=== PATIENT | female | born 1955 | race Caucasian/White ===

== ENCOUNTER 2021-11-13 01:40 | Inpatient (IN) | payer MEDICARE, BC ==
[~2021-11-13 01:40] MED LIST: Ondansetron 4 MG/2 ML SDV IVPUSH ONE; Sodium Chloride 0.9% 1,000 ML IV ONE; Sodium Chloride 0.9% 10 ML Syringe FLUSH PRN; Sodium Chloride 0.9% 2.5 ML Syringe FLUSH PRN
--- NOTE | 2021-11-13 01:43 | EDM.PDOC ---
ED HPI GENERAL MEDICAL PROBLEM - General Stated Complaint: EMS/ ABDOMINAL PAIN Time Seen by Provider: 11/13/21 01:40 - History of Present Illness INITIAL COMMENTS - FREE TEXT/NARRATIVE: History of present illness: [] Patient reports gradual increase size of her stomach with firm discomfort. She has last BM about 24 hours ago and only 2 BMs in 1 week. Now she not passing gas or stool. She is nauseated and vomiting. She has abdominal pain to that is diffuse moderately severe nothing makes it better or worse. She has remote history of bowel obstruction. Review of systems: As per history of present illness and below otherwise all systems reviewed and negative. Past medical history: As per history of present illness and as reviewed below otherwise noncontributory. Surgical history: As per history of present illness and as reviewed below otherwise noncontributory. Social history: No reported history of drug or alcohol abuse. Family history: As per history of present illness and as reviewed below otherwise noncontributory. Physical exam: Constitutional - well developed, well-nourished and in no acute distress HEENT - normocephalic, no evidence of trauma - external nose and mouth normal - no mass in neck and no JVD - mucosae moist EYES - full EOM, PERRL, no icterus - no evidence of inflammation, injection, or drainage Respiratory - no respiratory distress, equal bilateral expansion, lungs clear to auscultation and no abnormal lung sounds Cardiovascular - Regular Rhythm with S1 and S2 appreciated and no murmur, gallop or rub. GI - abdomen distended-hyperactive bowel sounds - no guard or rebound Rectal-minimal stool in vault is brown and heme-negative Musculoskeletal no gross deformity of long bones or joints - no tenderness, swelling or edema Neurologic - Alert and oriented times four - CN II-XII grossly intact - motor sensory and coordination symmetrically normal Psychiatric - appropriate mood and affect with normal thought content Hematologic - No petechiae or purpura - mucosa appropriate color and sclera not pale - normal nail bed color and refill Integument - no rash or evidence of trauma - normal turgor Diagnostics: [] Therapeutics: [] Impression: [] Plan: [] Definitive disposition and diagnosis as appropriate pending reevaluation and review of above. abdomen Pain Score (Numeric/FACES): 6 - Related Data Allergies Allergy/AdvReac Type Severity Reaction Status Date / Time No Known Allergies Allergy Verified 11/13/21 01:51 Home Meds: Home Meds . [No Known Home Meds] 11/13/21 [History] ED ROS GENERAL - Review of Systems Review Of Systems: Comprehensive ROS is negative, except as noted in HPI. ED EXAM, GENERAL - Physical Exam Exam: See Below Free Text/Narrative:: My physical exam is in the HPI Course - Vital Signs Last Recorded V/S: Last Vital Signs Temp 36.3 C 11/13/21 01:47 Pulse 111 H 11/13/21 01:47 Resp 18 11/13/21 01:47 BP 110/63 11/13/21 01:47 Pulse Ox 97 11/13/21 01:47 - Orders/Labs/Meds Orders: Active Orders 24 hr Category Date Time Status Admission Status [Patient Status] [ADT] Stat ADT 11/13/21 02:57 Ordered NG [Gastrointestinal Tube Mgmt] [RC] ASDIRECTED Care 11/13/21 02:59 Ordered NG Tube Placement [CR] Stat Exams 11/13/21 02:59 Ordered UA W/ELEANOR RFLX IF INDICATED [URIN] Stat Lab 11/13/21 01:41 Ordered Dextrose 5%-1/2 Normal Saline with KCl 20 mEq @ 100 mL/ Med 11/13/21 03:00 Ordered Hr (1000 mL) D5 1/2 NS w/ 20 mEq/L KCl 1,000 ml IV ASDIRECTED Sodium Chloride 0.9% [Saline Flush] Med 11/13/21 01:40 Active 10 ml FLUSH ASDIRECTED PRN Sodium Chloride 0.9% [Saline Flush] Med 11/13/21 01:40 Active 2.5 ml FLUSH ASDIRECTED PRN Saline Lock Insert [OM.PC] Stat Oth 11/13/21 01:40 Ordered Medication Orders Sodium Chloride (Sodium Chloride 0.9% 10 Ml Syringe) 10 ml FLUSH ASDIRECTED PRN PRN Reason: Keep Vein Open Sodium Chloride (Sodium Chloride 0.9% 2.5 Ml Syringe) 2.5 ml FLUSH ASDIRECTED PRN PRN Reason: Keep Vein Open Labs: Laboratory Tests 11/13/21 11/13/21 Range/Units 01:50 01:50 WBC 13.50 H (4.0-11.0) K/uL RBC 4.71 (4.30-5.90) M/uL Hgb 14.7 (12.0-16.0) g/dL Hct 42.6 (36.0-46.0) % MCV 90.4 (80.0-98.0) fL MCH 31.2 (27.0-32.0) pg MCHC 34.5 (31.0-37.0) g/dL RDW Std Deviation 42.8 (28.0-62.0) fl RDW Coeff of Papo 13 (11.0-15.0) % Plt Count 472 H (150-400) K/uL MPV 10.20 (7.40-12.00) fL Neut % (Auto) 73.2 (48.0-80.0) % Lymph % (Auto) 13.3 L (16.0-40.0) % Swain % (Auto) 13.3 (0.0-15.0) % Eos % (Auto) 0.1 (0.0-7.0) % Baso % (Auto) 0.1 (0.0-1.5) % Neut # (Auto) 9.9 H (1.4-5.7) K/uL Lymph # (Auto) 1.8 (0.6-2.4) K/uL Swain # (Auto) 1.8 H (0.0-0.8) K/uL Eos # (Auto) 0.0 (0.0-0.7) K/uL Baso # (Auto) 0.0 (0.0-0.1) K/uL Nucleated RBC % 0.0 /100WBC Nucleated RBCs # 0 K/uL Sodium 134 L (136-145) mmol/L Potassium 4.5 (3.5-5.1) mmol/L Chloride 95 L (98-107) mmol/L Carbon Dioxide 28.2 (21.0-32.0) mmol/L BUN 22 H (7.0-18.0) mg/dL Creatinine 1.2 H (0.6-1.0) mg/dL Est Cr Clr Drug Dosing 39.24 mL/min Estimated GFR (MDRD) 44.9 ml/min Glucose 163 H (74-106) mg/dL Calcium 9.8 (8.5-10.1) mg/dL Total Bilirubin 0.9 (0.2-1.0) mg/dL AST 15 (15-37) IU/L ALT 17 (14-63) IU/L Alkaline Phosphatase 83 (46-116) U/L Total Protein 7.8 (6.4-8.2) g/dL Albumin 3.9 (3.4-5.0) g/dL Globulin 3.9 (2.6-4.0) g/dL Albumin/Globulin Ratio 1.0 (0.9-1.6) Lipase 163 (73-393) U/L Meds: Medications Generic Name Dose Route Start Last Admin Trade Name Freq PRN Reason Stop Dose Admin Sodium Chloride 10 ml 11/13/21 01:40 Sodium Chloride 0.9% 10 Ml Syringe FLUSH ASDIRECTED PRN Keep Vein Open Sodium Chloride 2.5 ml 11/13/21 01:40 Sodium Chloride 0.9% 2.5 Ml Syringe FLUSH ASDIRECTED PRN Keep Vein Open Discontinued Medications Generic Name Dose Route Start Last Admin Trade Name Freq PRN Reason Stop Dose Admin Sodium Chloride 1,000 mls @ 999 mls/hr 11/13/21 01:40 11/13/21 02:10 Normal Saline IV 11/13/21 02:40 999 mls/hr .Bolus ONE Administration Ondansetron HCl 4 mg 11/13/21 01:40 11/13/21 02:10 Ondansetron 4 Mg/2 Ml Sdv IVPUSH 11/13/21 01:41 4 mg ONETIME ONE Administration - Re-Assessments/Exams Free Text/Narrative Re-Assessment/Exam: 11/13/21 03:01 Patient has intermittent partial small bowel obstruction. Discussed with Dr. Esteves and admitted. Departure - Departure Time of Disposition: 03:01 Disposition: Admitted As Inpatient 66 Condition: Good Clinical Impression: SBO (small bowel obstruction) - Discharge Information Sepsis Event Note (ED) - Focused Exam Vital Signs: Vital Signs Temp Pulse Resp BP Pulse Ox 11/13/21 01:47 36.3 C 111 H 18 110/63 97 - My Orders Last 24 Hours: My Active Orders 11/13/21 01:40 Sodium Chloride 0.9% [Saline Flush] 10 ml FLUSH ASDIRECTED PRN Sodium Chloride 0.9% [Saline Flush] 2.5 ml FLUSH ASDIRECTED PRN Saline Lock Insert [OM.PC] Stat 11/13/21 01:41 UA W/ELEANOR RFLX IF INDICATED [URIN] Stat 11/13/21 02:57 Admission Status [Patient Status] [ADT] Stat 11/13/21 02:59 NG [Gastrointestinal Tube Mgmt] [RC] ASDIRECTED NG Tube Placement [CR] Stat 11/13/21 03:00 Dextrose 5%-1/2 Normal Saline with KCl 20 mEq @ 100 mL/Hr (1000 mL) D5 1/2 NS w/ 20 mEq/L KCl 1,000 ml IV ASDIRECTED - Assessment/Plan Last 24 Hours: My Active Orders 11/13/21 01:40 Sodium Chloride 0.9% [Saline Flush] 10 ml FLUSH ASDIRECTED PRN Sodium Chloride 0.9% [Saline Flush] 2.5 ml FLUSH ASDIRECTED PRN Saline Lock Insert [OM.PC] Stat 11/13/21 01:41 UA W/ELEANOR RFLX IF INDICATED [URIN] Stat 11/13/21 02:57 Admission Status [Patient Status] [ADT] Stat 11/13/21 02:59 NG [Gastrointestinal Tube Mgmt] [RC] ASDIRECTED NG Tube Placement [CR] Stat 11/13/21 03:00 Dextrose 5%-1/2 Normal Saline with KCl 20 mEq @ 100 mL/Hr (1000 mL) D5 1/2 NS w/ 20 mEq/L KCl 1,000 ml IV ASDIRECTED
[2021-11-13 02:29] LABS: CARBON DIOXIDE,CO2 28.2 mmol/L (21.0-32.0); POTASSIUM,K 4.5 mmol/L (3.5-5.1)
--- NOTE | 2021-11-13 02:33 | CR ---
Indication: Abdominal pain and distension Technique: Portable upright AP view of the chest. Upright and supine views of the abdomen. Comparison: None Findings: The lungs are clear. There is no evidence of pleural effusion or pneumothorax. The cardiomediastinal silhouette is normal. There is no free air under the diaphragm. There is air distention of the transverse colon. Several distended air-filled small bowel loops also noted in the mid abdomen. Bowel air-fluid levels are seen on upright view. The visualized osseous structures are unremarkable. Impression: 1. Multiple distended air-filled small bowel loops with air-fluid levels on upright view. Bowel obstruction is not excluded. No evidence of pneumoperitoneum. Further evaluation is recommended with CT. 2. Nonspecific air distention of the transverse colon. 3. No acute intrathoracic process. Dictated by Page Garvey MD @ 11/13/2021 2:33:12 AM (Electronically Signed)
[2021-11-13] MEDS ORDERED: D5 1/2 NS w/ 20 mEq/L KCl 1,000 ML IV SCH (03:00)
[2021-11-13] MEDS ORDERED: Lidocaine 2% Viscous Solution 15 ML Cup PO ONE (03:12)
[2021-11-13] MEDS ORDERED: cefTRIAXone 1 GM in Premix Bag 1 BAG IV ONE (03:22)
--- NOTE | 2021-11-13 05:02 | CR ---
INDICATION: Tube placement. COMPARISON: X-rays earlier the same day. TECHNIQUE: Single frontal view the abdomen. FINDINGS: There has been interval placement of enteric tube with the tip and side port below the diaphragm. Again noted are multiple distended loops of both large and small bowel, similar to prior. No evidence of free air. No pathologic calcifications. No acute osseous findings. IMPRESSION: 1. Interval placement of an enteric tube with the tip and side port below the diaphragm. 2. Gaseous distended loops of both large and small bowel, not significantly changed. Dictated by Jean-Pierre Cho MD @ 11/13/2021 5:01:22 AM Dictated by: Jean-Pierre Cho MD @ 11/13/2021 05:01:34 (Electronically Signed)
[2021-11-13] MEDS ORDERED: Ondansetron 4 MG/2 ML SDV IVPUSH PRN (07:56)
[2021-11-13] MEDS ORDERED: Albuterol/Ipratropium 3.0-0.5 MG/3 ML Neb Soln NEB PRN (07:56)
--- NOTE | 2021-11-13 07:59 | PCM.HP.2 ---
H&P History of Present Illness - General Date of Service: 11/13/21 Admit Problem/Dx: Admission Diagnosis/Problem Admission Diagnosis/Problem Small bowel obstruction - History of Present Illness Initial Comments - Free Text/Narative: 66-year-old female presented to the ER with complaints of firm abdominal distention and constipation. Patient had 1 bowel movement greater than 24 hours ago but has only had 2 bowel movements in the past 1 week. Currently not passing gas or stool. Patient endorses nausea or vomiting. Patient has abdominal pain that is diffuse. Patient has a remote history of bowel obstruction. Patient also found to have a UTI and started on ceftriaxone. In the ER, patient had an NG tube placed which was confirmed with an x-ray. abdomen Pain Score (Numeric/FACES): 6 - Related Data Allergies/Adverse Reactions: Allergies Allergy/AdvReac Type Severity Reaction Status Date / Time No Known Allergies Allergy Verified 11/13/21 07:20 Home Medications: Home Meds . 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 Denies: Fever Pulmonary: Denies: Shortness of Breath, Wheezing Cardiovascular: Denies: Chest Pain, Palpitations Gastrointestinal: Reports: Abdominal Pain, Anorexia, Constipation, Distension. Denies: Black Stool, Bloody Stool, Diarrhea, Flatus Genitourinary: Denies: Dysuria Skin: Denies: Jaundice Psychiatric: Denies: Confusion Neurological: Denies: Confusion, Dizziness, Pre-Existing Deficit Exam - Exam Exam: See Below - Vital Signs Vital Signs: Last Vital Signs Temp 96.7 F L 11/13/21 05:12 Pulse 86 11/13/21 05:12 Resp 16 11/13/21 05:12 BP 107/66 11/13/21 05:12 Pulse Ox 97 11/13/21 05:12 Weight: 264 lb 12.403 oz - Exam General: Alert, Oriented HEENT: Conjunctiva Clear, EACs Clear Neck: Supple, Trachea Midline Lungs: Clear to Auscultation Cardiovascular: Regular Rate, Regular Rhythm GI/Abdominal Exam: Distended, Guarding, Tender. No: Rebound Back Exam: Normal Inspection Extremities: Normal Inspection Peripheral Pulses: 2+: Dorsalis Pedis (L), Dorsalis Pedis (R) Skin: Warm, Dry, Intact Neurological: Cranial Nerves Intact Neuro Extensive - Mental Status: Alert, Oriented x3 - Patient Data Lab Results Last 24 hrs: Laboratory Results - last 24 hr 11/13/21 11/13/21 11/13/21 Range/Units 01:50 01:50 03:02 WBC 13.50 H (4.0-11.0) K/uL RBC 4.71 (4.30-5.90) M/uL Hgb 14.7 (12.0-16.0) g/dL Hct 42.6 (36.0-46.0) % MCV 90.4 (80.0-98.0) fL MCH 31.2 (27.0-32.0) pg MCHC 34.5 (31.0-37.0) g/dL RDW Std Deviation 42.8 (28.0-62.0) fl RDW Coeff of Papo 13 (11.0-15.0) % Plt Count 472 H (150-400) K/uL MPV 10.20 (7.40-12.00) fL Neut % (Auto) 73.2 (48.0-80.0) % Lymph % (Auto) 13.3 L (16.0-40.0) % Sawyer % (Auto) 13.3 (0.0-15.0) % Eos % (Auto) 0.1 (0.0-7.0) % Baso % (Auto) 0.1 (0.0-1.5) % Neut # (Auto) 9.9 H (1.4-5.7) K/uL Lymph # (Auto) 1.8 (0.6-2.4) K/uL Sawyer # (Auto) 1.8 H (0.0-0.8) K/uL Eos # (Auto) 0.0 (0.0-0.7) K/uL Baso # (Auto) 0.0 (0.0-0.1) K/uL Nucleated RBC % 0.0 /100WBC Nucleated RBCs # 0 K/uL Sodium 134 L (136-145) mmol/L Potassium 4.5 (3.5-5.1) mmol/L Chloride 95 L (98-107) mmol/L Carbon Dioxide 28.2 (21.0-32.0) mmol/L BUN 22 H (7.0-18.0) mg/dL Creatinine 1.2 H (0.6-1.0) mg/dL Est Cr Clr Drug Dosing 39.24 mL/min Estimated GFR (MDRD) 44.9 ml/min Glucose 163 H (74-106) mg/dL Calcium 9.8 (8.5-10.1) mg/dL Total Bilirubin 0.9 (0.2-1.0) mg/dL AST 15 (15-37) IU/L ALT 17 (14-63) IU/L Alkaline Phosphatase 83 (46-116) U/L Total Protein 7.8 (6.4-8.2) g/dL Albumin 3.9 (3.4-5.0) g/dL Globulin 3.9 (2.6-4.0) g/dL Albumin/Globulin Ratio 1.0 (0.9-1.6) Lipase 163 (73-393) U/L Urine Color Urine Appearance Urine pH (5.0-8.0) Ur Specific [place] (1.001-1.035) Urine Protein (NEGATIVE) mg/dL Urine Glucose (UA) (NEGATIVE) mg/dL Urine Ketones (NEGATIVE) mg/dL Urine Occult Blood (NEGATIVE) Urine Nitrite (NEGATIVE) Urine Bilirubin (NEGATIVE) Urine Urobilinogen (<2.0) EU/dL Ur Leukocyte Esterase (NEGATIVE) U Hyaline Cast (Auto) (0-2/LPF) Urine RBC (0-2/HPF) Urine WBC (0-5/HPF) Ur Epithelial Cells (NONE-FEW) Calcium Oxalate Crystal (NEGATIVE) Urine Bacteria (NEGATIVE) SARS-CoV-2 RNA (ANTONIO) NEGATIVE (NEGATIVE) 12/21/21 Range/Units 03:05 WBC (4.0-11.0) K/uL RBC (4.30-5.90) M/uL Hgb (12.0-16.0) g/dL Hct (36.0-46.0) % MCV (80.0-98.0) fL MCH (27.0-32.0) pg MCHC (31.0-37.0) g/dL RDW Std Deviation (28.0-62.0) fl RDW Coeff of Papo (11.0-15.0) % Plt Count (150-400) K/uL MPV (7.40-12.00) fL Neut % (Auto) (48.0-80.0) % Lymph % (Auto) (16.0-40.0) % Sawyer % (Auto) (0.0-15.0) % Eos % (Auto) (0.0-7.0) % Baso % (Auto) (0.0-1.5) % Neut # (Auto) (1.4-5.7) K/uL Lymph # (Auto) (0.6-2.4) K/uL Sawyer # (Auto) (0.0-0.8) K/uL Eos # (Auto) (0.0-0.7) K/uL Baso # (Auto) (0.0-0.1) K/uL Nucleated RBC % /100WBC Nucleated RBCs # K/uL Sodium (136-145) mmol/L Potassium (3.5-5.1) mmol/L Chloride (98-107) mmol/L Carbon Dioxide (21.0-32.0) mmol/L BUN (7.0-18.0) mg/dL Creatinine (0.6-1.0) mg/dL Est Cr Clr Drug Dosing mL/min Estimated GFR (MDRD) ml/min Glucose (74-106) mg/dL Calcium (8.5-10.1) mg/dL Total Bilirubin (0.2-1.0) mg/dL AST (15-37) IU/L ALT (14-63) IU/L Alkaline Phosphatase (46-116) U/L Total Protein (6.4-8.2) g/dL Albumin (3.4-5.0) g/dL Globulin (2.6-4.0) g/dL Albumin/Globulin Ratio (0.9-1.6) Lipase (73-393) U/L Urine Color DARK YELLOW Urine Appearance SLT CLOUDY Urine pH 6.0 (5.0-8.0) Ur Specific [place] >= 1.030 (1.001-1.035) Urine Protein 30 H (NEGATIVE) mg/dL Urine Glucose (UA) NEGATIVE (NEGATIVE) mg/dL Urine Ketones >=80 (NEGATIVE) mg/dL Urine Occult Blood TRACE-INTACT H (NEGATIVE) Urine Nitrite POSITIVE H (NEGATIVE) Urine Bilirubin MODERATE H (NEGATIVE) Urine Urobilinogen 1.0 (<2.0) EU/dL Ur Leukocyte Esterase SMALL H (NEGATIVE) U Hyaline Cast (Auto) 10-15 (0-2/LPF) Urine RBC 2-4 (0-2/HPF) Urine WBC 2-5 (0-5/HPF) Ur Epithelial Cells OCCASIONAL (NONE-FEW) Calcium Oxalate Crystal OCCASIONAL (NEGATIVE) Urine Bacteria 2+ H (NEGATIVE) SARS-CoV-2 RNA (ANTONIO) (NEGATIVE) Result Diagrams: 11/13/21 01:50 11/13/21 01:50 Sepsis Event Note - Evaluation Sepsis Screening Result: No Definite Risk - Focused Exam Vital Signs: Vital Signs Temp Pulse Resp BP BP Pulse Ox 11/13/21 05:12 96.7 F L 86 16 107/66 97 11/13/21 03:05 96.9 F 80 16 130/66 99 11/13/21 01:47 97.4 F 111 H 18 110/63 97 - Problem List (1) UTI (urinary tract infection) SNOMED Code(s): 68295369 ICD Code: N39.0 - URINARY TRACT INFECTION, SITE NOT SPECIFIED Status: Acute Current Visit: Yes (2) SBO (small bowel obstruction) SNOMED Code(s): 822088200 ICD Code: K56.609 - UNSP INTESTNL OBST, UNSP TO PARTIAL VERSUS COMPLETE OBST Status: Acute Current Visit: Yes Problem List Initiated/Reviewed/Updated: Yes Orders Last 24hrs: Active Orders 24 hr Category Date Time Status Admission Status [Patient Status] [ADT] Stat ADT 11/13/21 02:57 Active Ambulate [RC] ASDIRECTED Care 11/13/21 07:56 Ordered Antiembolic Devices [RC] PER UNIT ROUTINE Care 11/13/21 07:58 Ordered NG [Gastrointestinal Tube Mgmt] [RC] ASDIRECTED Care 11/13/21 02:59 Active Oxygen Therapy [RC] PRN Care 11/13/21 07:56 Ordered RT Aerosol Therapy [RC] ASDIRECTED Care 11/13/21 07:58 Ordered VTE/DVT Education [RC] PER UNIT ROUTINE Care 11/13/21 07:56 Ordered Vital Signs [RC] Q4H Care 11/13/21 07:56 Ordered Nothing per Oral Now Diet [DIET] Diet 11/13/21 Breakfast Ordered CBC W/O DIFF,HEMOGRAM [HEME] DAILY Lab 11/14/21 05:11 Ordered CBC W/O DIFF,HEMOGRAM [HEME] DAILY Lab 11/15/21 05:11 Ordered CBC W/O DIFF,HEMOGRAM [HEME] DAILY Lab 11/16/21 05:11 Ordered COMPREHENSIVE METABOLIC PN,CMP [CHEM] DAILY Lab 11/14/21 05:11 Ordered COMPREHENSIVE METABOLIC PN,CMP [CHEM] DAILY Lab 11/15/21 05:11 Ordered COMPREHENSIVE METABOLIC PN,CMP [CHEM] DAILY Lab 11/16/21 05:11 Ordered CULTURE URINE [MREF] Stat Lab 11/13/21 03:05 Received Albuterol/Ipratropium [DuoNeb 3.0-0.5 MG/3 ML] Med 11/13/21 07:56 Ordered 3 ml NEB Q4HRRT PRN D5 1/2 NS w/ 20 mEq/L KCl 1,000 ml Med 11/13/21 03:00 Active IV ASDIRECTED Ondansetron [Zofran] Med 11/13/21 07:56 Ordered 4 mg IVPUSH Q6H PRN Sodium Chloride 0.9% [Saline Flush] Med 11/13/21 01:40 Active 10 ml FLUSH ASDIRECTED PRN Sodium Chloride 0.9% [Saline Flush] Med 11/13/21 01:40 Active 2.5 ml FLUSH ASDIRECTED PRN Saline Lock Insert [OM.PC] Stat Oth 11/13/21 01:40 Ordered Sequential Compression Device [OM.PC] Per Unit Routine Oth 11/13/21 07:57 Ordered Medication Orders Potassium Chloride/Dextrose/Sod Cl (D5 1/2 Ns W/ 20 Meq/L Kcl) 1,000 mls @ 100 mls/hr IV ASDIRECTED [facility] Last Admin: 11/13/21 03:35 Dose: 100 mls/hr Documented by: JORGE LUIS Sodium Chloride (Sodium Chloride 0.9% 10 Ml Syringe) 10 ml FLUSH ASDIRECTED PRN PRN Reason: Keep Vein Open Sodium Chloride (Sodium Chloride 0.9% 2.5 Ml Syringe) 2.5 ml FLUSH ASDIRECTED PRN PRN Reason: Keep Vein Open Assessment/Plan Comment:: Small bowel obstruction: -Conservative management. NG tube placed for decompression. NPO. Fluids as needed. Urinary tract infection: -Ceftriaxone.
[2021-11-13] MEDS: cefTRIAXone 2 GM in Premix Bag 1 BAG IV SCH (08:40)
--- NOTE | 2021-11-13 11:38 | PCM.CONS ---
H&P History of Present Illness - General Date of Service: 11/13/21 Admit Problem/Dx: Admission Diagnosis/Problem Admission Diagnosis/Problem Small bowel obstruction Source of Information: Patient History Limitations: Reports: No Limitations - History of Present Illness Initial Comments - Free Text/Narative: Patient is a 66-year-old female who presented to the emergency room earlier this morning with a one-week history of abdominal pain with intermittent nausea and vomiting. She states she has not been passing a lot of gas, but has had a couple of small to medium size bowel movements in the last week. She denies any fever or chills. She has not noticed any blood when she has a bowel movement. She denies any unexplained weight loss. This morning when I examined her she rated her pain, without analgesics, at a "1". She has had a previous laparotomy for small bowel obstruction. She was 14 years of age at the time and does not really know what was going on. She also states she has had an appendectomy. Symptom Onset Date: 11/06/21 Location: Reports: Abdomen Quality: Reports: Pressure Improves with: Reports: Rest Worsens with: Reports: Eating Context: Reports: Sick Contact Associated Symptoms: Reports: Loss of Appetite, Nausea/Vomiting. Denies: Confusion, Chest Pain, Cough abdomen Pain Score (Numeric/FACES): 6 - Related Data Allergies/Adverse Reactions: Allergies Allergy/AdvReac Type Severity Reaction Status Date / Time No Known Allergies Allergy Verified 11/13/21 07:20 Home Medications: Home Meds . 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 GI Surgical History: Reports: Appendectomy Other GI Surgeries/Procedures: Laparotomy for small bowel obstruction as a teen Social & Family History - Family History Family Medical History: No Pertinent Family History - Tobacco Use Tobacco Use Status *Q: Former Tobacco User Years of Tobacco use: 7 Used Tobacco, but Quit: Yes Month/Year Tobacco Last Used: 1977 - Caffeine Use Caffeine Use: Reports: Coffee - Recreational Drug Use Recreational Drug Use: No H&P Review of Systems - Review of Systems: Review Of Systems: See Below General: Denies: Fever, Chills, Malaise, Weakness, Fatigue, Weight Loss HEENT: Reports: No Symptoms Pulmonary: Denies: Shortness of Breath, Wheezing, Pleuritic Chest Pain Cardiovascular: Denies: Chest Pain, Palpitations Gastrointestinal: Reports: Abdominal Pain, Anorexia, Constipation, Decreased Appetite, Distension, Nausea, Vomiting. Denies: Black Stool, Bloody Stool, Diarrhea, Hematemesis, Hematochezia, Melena Genitourinary: Denies: Dysuria, Frequency, Burning, Pain, Urgency Musculoskeletal: Reports: No Symptoms Skin: Denies: Cyanosis, Jaundice, Mottled Psychiatric: Denies: Confusion, Depression, Anxiety Neurological: Denies: Confusion, Dizziness Hematologic/Lymphatic: Denies: Anemia, Easy Bleeding, Easy Bruising Immunologic: Reports: No Symptoms Exam - Exam Exam: See Below - Vital Signs Vital Signs: Last Vital Signs Temp 96.7 F L 11/13/21 05:12 Pulse 86 11/13/21 05:12 Resp 16 11/13/21 05:12 BP 107/66 11/13/21 05:12 Pulse Ox 97 11/13/21 05:12 Weight: 264 lb 12.403 oz - Exam Quality Assessment: No: Supplemental Oxygen, Urinary Catheter, Skin Breakdown General: Alert, Oriented, Cooperative, Mild Distress HEENT: Conjunctiva Clear, EACs Clear, Pupils Equal, Pupils Reactive. No: Scleral Icterus Neck: Supple, Trachea Midline Lungs: Clear to Auscultation, Normal Respiratory Effort. No: Wheezing Cardiovascular: Regular Rate, Regular Rhythm, Normal S1, Normal S2. No: Systolic Murmur, Diastolic Murmur GI/Abdominal Exam: Normal Bowel Sounds, Soft, Non-Tender, Distended (mild). No: Guarding, Rigid, Rebound Rectal (Female) Exam: Deferred Back Exam: Normal Inspection, Full Range of Motion Extremities: Normal Inspection, Normal Range of Motion, Non-Tender, No Pedal Edema Peripheral Pulses: 4+: Posterior Tibial (L), Posterior Tibial (R), Dorsalis Pedis (L), Dorsalis Pedis (R) Skin: Warm, Dry, Intact Neurological: Cranial Nerves Intact Psychiatric: Alert, Normal Affect, Normal Mood - Patient Data Lab Results Last 24 hrs: Laboratory Results - last 24 hr 11/13/21 11/13/21 11/13/21 Range/Units 01:50 01:50 03:02 WBC 13.50 H (4.0-11.0) K/uL RBC 4.71 (4.30-5.90) M/uL Hgb 14.7 (12.0-16.0) g/dL Hct 42.6 (36.0-46.0) % MCV 90.4 (80.0-98.0) fL MCH 31.2 (27.0-32.0) pg MCHC 34.5 (31.0-37.0) g/dL RDW Std Deviation 42.8 (28.0-62.0) fl RDW Coeff of Papo 13 (11.0-15.0) % Plt Count 472 H (150-400) K/uL MPV 10.20 (7.40-12.00) fL Neut % (Auto) 73.2 (48.0-80.0) % Lymph % (Auto) 13.3 L (16.0-40.0) % [place] % (Auto) 13.3 (0.0-15.0) % Eos % (Auto) 0.1 (0.0-7.0) % Baso % (Auto) 0.1 (0.0-1.5) % Neut # (Auto) 9.9 H (1.4-5.7) K/uL Lymph # (Auto) 1.8 (0.6-2.4) K/uL [place] # (Auto) 1.8 H (0.0-0.8) K/uL Eos # (Auto) 0.0 (0.0-0.7) K/uL Baso # (Auto) 0.0 (0.0-0.1) K/uL Nucleated RBC % 0.0 /100WBC Nucleated RBCs # 0 K/uL Sodium 134 L (136-145) mmol/L Potassium 4.5 (3.5-5.1) mmol/L Chloride 95 L (98-107) mmol/L Carbon Dioxide 28.2 (21.0-32.0) mmol/L BUN 22 H (7.0-18.0) mg/dL Creatinine 1.2 H (0.6-1.0) mg/dL Est Cr Clr Drug Dosing 39.24 mL/min Estimated GFR (MDRD) 44.9 ml/min Glucose 163 H (74-106) mg/dL Calcium 9.8 (8.5-10.1) mg/dL Total Bilirubin 0.9 (0.2-1.0) mg/dL AST 15 (15-37) IU/L ALT 17 (14-63) IU/L Alkaline Phosphatase 83 (46-116) U/L Total Protein 7.8 (6.4-8.2) g/dL Albumin 3.9 (3.4-5.0) g/dL Globulin 3.9 (2.6-4.0) g/dL Albumin/Globulin Ratio 1.0 (0.9-1.6) Lipase 163 (73-393) U/L Urine Color Urine Appearance Urine pH (5.0-8.0) Ur Specific Shelby (1.001-1.035) Urine Protein (NEGATIVE) mg/dL Urine Glucose (UA) (NEGATIVE) mg/dL Urine Ketones (NEGATIVE) mg/dL Urine Occult Blood (NEGATIVE) Urine Nitrite (NEGATIVE) Urine Bilirubin (NEGATIVE) Urine Urobilinogen (<2.0) EU/dL Ur Leukocyte Esterase (NEGATIVE) U Hyaline Cast (Auto) (0-2/LPF) Urine RBC (0-2/HPF) Urine WBC (0-5/HPF) Ur Epithelial Cells (NONE-FEW) Calcium Oxalate Crystal (NEGATIVE) Urine Bacteria (NEGATIVE) SARS-CoV-2 RNA (ANTONIO) NEGATIVE (NEGATIVE) 11/13/21 Range/Units 03:05 WBC (4.0-11.0) K/uL RBC (4.30-5.90) M/uL Hgb (12.0-16.0) g/dL Hct (36.0-46.0) % MCV (80.0-98.0) fL MCH (27.0-32.0) pg MCHC (31.0-37.0) g/dL RDW Std Deviation (28.0-62.0) fl RDW Coeff of Papo (11.0-15.0) % Plt Count (150-400) K/uL MPV (7.40-12.00) fL Neut % (Auto) (48.0-80.0) % Lymph % (Auto) (16.0-40.0) % [place] % (Auto) (0.0-15.0) % Eos % (Auto) (0.0-7.0) % Baso % (Auto) (0.0-1.5) % Neut # (Auto) (1.4-5.7) K/uL Lymph # (Auto) (0.6-2.4) K/uL [place] # (Auto) (0.0-0.8) K/uL Eos # (Auto) (0.0-0.7) K/uL Baso # (Auto) (0.0-0.1) K/uL Nucleated RBC % /100WBC Nucleated RBCs # K/uL Sodium (136-145) mmol/L Potassium (3.5-5.1) mmol/L Chloride (98-107) mmol/L Carbon Dioxide (21.0-32.0) mmol/L BUN (7.0-18.0) mg/dL Creatinine (0.6-1.0) mg/dL Est Cr Clr Drug Dosing mL/min Estimated GFR (MDRD) ml/min Glucose (74-106) mg/dL Calcium (8.5-10.1) mg/dL Total Bilirubin (0.2-1.0) mg/dL AST (15-37) IU/L ALT (14-63) IU/L Alkaline Phosphatase (46-116) U/L Total Protein (6.4-8.2) g/dL Albumin (3.4-5.0) g/dL Globulin (2.6-4.0) g/dL Albumin/Globulin Ratio (0.9-1.6) Lipase (73-393) U/L Urine Color DARK YELLOW Urine Appearance SLT CLOUDY Urine pH 6.0 (5.0-8.0) Ur Specific Shelby >= 1.030 (1.001-1.035) Urine Protein 30 H (NEGATIVE) mg/dL Urine Glucose (UA) NEGATIVE (NEGATIVE) mg/dL Urine Ketones >=80 (NEGATIVE) mg/dL Urine Occult Blood TRACE-INTACT H (NEGATIVE) Urine Nitrite POSITIVE H (NEGATIVE) Urine Bilirubin MODERATE H (NEGATIVE) Urine Urobilinogen 1.0 (<2.0) EU/dL Ur Leukocyte Esterase SMALL H (NEGATIVE) U Hyaline Cast (Auto) 10-15 (0-2/LPF) Urine RBC 2-4 (0-2/HPF) Urine WBC 2-5 (0-5/HPF) Ur Epithelial Cells OCCASIONAL (NONE-FEW) Calcium Oxalate Crystal OCCASIONAL (NEGATIVE) Urine Bacteria 2+ H (NEGATIVE) SARS-CoV-2 RNA (ANTONIO) (NEGATIVE) Result Diagrams: 11/13/21 01:50 11/13/21 01:50 Imaging Impressions Last 24 hrs: Abdominal films and report have been personally reviewed. I do agree there appears to be a bowel obstruction with both large and small bowel distended. This would suggest a distal colonic problem. Sepsis Event Note - Evaluation Sepsis Screening Result: No Definite Risk - Focused Exam Vital Signs: Vital Signs Temp Pulse Resp BP BP Pulse Ox 11/13/21 05:12 96.7 F L 86 16 107/66 97 11/13/21 03:05 96.9 F 80 16 130/66 99 11/13/21 01:47 97.4 F 111 H 18 110/63 97 Consult PN Assessment/Plan (1) Large bowel obstruction SNOMED Code(s): 433501178 Code(s): K56.609 - UNSP INTESTNL OBST, UNSP TO PARTIAL VERSUS COMPLETE OBST Priority: High Current Visit: Yes (2) SBO (small bowel obstruction) SNOMED Code(s): 174613621 Code(s): K56.609 - UNSP INTESTNL OBST, UNSP TO PARTIAL VERSUS COMPLETE OBST Priority: High Current Visit: Yes Problem List Initiated/Reviewed/Updated: Yes Plan: I certainly agree with NG tube decompression and intravenous fluid resuscitation. I would consider repeating a flat and upright of her abdomen to see if there has been any progression. One might also consider CT scan of the abdomen and pelvis to look for any intra-abdominal process causing the obstruction. One might also consider a Gastrografin study to see if contrast flows all the way through the small bowel into the colon and distally. Thank you for this consultation.
[2021-11-13] MEDS ORDERED: Sodium Chloride 0.9% 1,000 ML IV SCH (16:45)
[2021-11-14 07:20] LABS: BLOOD UREA NITROGEN,BUN 20 mg/dL (7.0-18.0); CARBON DIOXIDE,CO2 26.5 mmol/L (21.0-32.0); CHLORIDE,CL 101 mmol/L (98-107); GLUCOSE RANDOM 112 mg/dL (74-106); SODIUM,NA 140 mmol/L (136-145)
[2021-11-14] MEDS: cefTRIAXone 2 GM in Premix Bag 1 BAG IV SCH (07:41)
--- NOTE | 2021-11-14 09:55 | PCM.CONSN ---
- General Info Date of Service: 11/14/21 Admission Dx/Problem (Free Text): High-grade bowel obstruction, possible large bowel. Subjective Update: Abdominal pain is unchanged from yesterday. She still states it is about a "1". She still has not passed any gas or had a bowel movement. She has only been walking in her room. Functional Status: Reports: Pain Controlled - Review of Systems General: Denies: Fever, Weakness, Fatigue, Malaise HEENT: Reports: No Symptoms Pulmonary: Denies: Shortness of Breath, Cough Cardiovascular: Denies: Chest Pain Gastrointestinal: Reports: Abdominal Pain (very mild). Denies: Diarrhea, Flatus, Nausea, Vomiting (patient does have an NG that has drained 800 mL in the last 24 hours.) Genitourinary: Denies: Dysuria, Frequency, Burning Musculoskeletal: Denies: Neck Pain, Shoulder Pain, Arm Pain Skin: Denies: Cyanosis, Jaundice, Mottled, Pallor Neurological: Denies: Confusion, Dizziness Psychiatric: Denies: Confusion, Depression, Mood Lability, Anxiety - Patient Data Vitals - Most Recent: Last Vital Signs Temp 98.3 F 11/14/21 07:00 Pulse 85 11/14/21 07:00 Resp 16 11/14/21 07:00 BP 122/61 11/14/21 07:00 Pulse Ox 97 11/14/21 07:00 Weight - Most Recent: 264 lb 12.403 oz I&O - Last 24 Hours: Intake & Output 11/13/21 11/14/21 11/14/21 19:59 03:59 11:59 Intake Total 0 Output Total 665 250 Balance -665 -250 Imaging Impressions - Last 24 Hours: Abdominal films and CT scan have not yet been obtained today. Lab Results Last 24 Hours: Laboratory Results - last 24 hr 11/14/21 11/14/21 11/14/21 Range/Units 05:10 05:30 05:30 WBC 5.55 (4.0-11.0) K/uL RBC 4.33 (4.30-5.90) M/uL Hgb 13.2 (12.0-16.0) g/dL Hct 39.7 (36.0-46.0) % MCV 91.7 (80.0-98.0) fL MCH 30.5 (27.0-32.0) pg MCHC 33.2 (31.0-37.0) g/dL RDW Std Deviation 44.6 (28.0-62.0) fl RDW Coeff of Papo 13 (11.0-15.0) % Plt Count 452 H (150-400) K/uL MPV 10.90 (7.40-12.00) fL Nucleated RBC % 0.0 /100WBC Nucleated RBCs # 0 K/uL Sodium 140 (136-145) mmol/L Potassium 4.0 (3.5-5.1) mmol/L Chloride 101 (98-107) mmol/L Carbon Dioxide 26.5 (21.0-32.0) mmol/L BUN 20 H (7.0-18.0) mg/dL Creatinine 0.7 (0.6-1.0) mg/dL Est Cr Clr Drug Dosing 79.75 mL/min Estimated GFR (MDRD) > 60.0 ml/min Glucose 112 H (74-106) mg/dL POC Glucose 107 H (70-99) mg/dL Calcium 9.0 (8.5-10.1) mg/dL Total Bilirubin 0.5 (0.2-1.0) mg/dL AST 15 (15-37) IU/L ALT 18 (14-63) IU/L Alkaline Phosphatase 69 (46-116) U/L Total Protein 6.5 (6.4-8.2) g/dL Albumin 3.4 (3.4-5.0) g/dL Globulin 3.1 (2.6-4.0) g/dL Albumin/Globulin Ratio 1.1 (0.9-1.6) Med Orders - Current: Current Medications Albuterol/Ipratropium (Albuterol/Ipratropium 3.0-0.5 Mg/3 Ml Neb Soln) 3 ml NEB Q4HRRT PRN PRN Reason: Shortness Of Breath/wheezing Ceftriaxone Sodium/Dextrose 2 (gm/ Premix) 50 mls @ 100 mls/hr IV Q24H [facility] Last Admin: 11/14/21 07:41 Dose: 100 mls/hr Documented by: Ondansetron HCl (Ondansetron 4 Mg/2 Ml Sdv) 4 mg IVPUSH Q6H PRN PRN Reason: Nausea/Vomiting Sodium Chloride (Sodium Chloride 0.9% 10 Ml Syringe) 10 ml FLUSH ASDIRECTED PRN PRN Reason: Keep Vein Open Sodium Chloride (Sodium Chloride 0.9% 2.5 Ml Syringe) 2.5 ml FLUSH ASDIRECTED PRN PRN Reason: Keep Vein Open Discontinued Medications Sodium Chloride (Normal Saline) 1,000 mls @ 999 mls/hr IV .Bolus ONE Stop: 11/13/21 02:40 Last Admin: 11/13/21 02:10 Dose: 999 mls/hr Documented by: Potassium Chloride/Dextrose/Sod Cl (D5 1/2 Ns W/ 20 Meq/L Kcl) 1,000 mls @ 100 mls/hr IV ASDIRECTED ANNY Last Admin: 11/13/21 03:35 Dose: 100 mls/hr Documented by: Ceftriaxone Sodium/Dextrose 1 (gm/ Premix) 50 mls @ 100 mls/hr IV ONETIME ONE Stop: 11/13/21 03:51 Last Admin: 11/13/21 03:35 Dose: 100 mls/hr Documented by: Sodium Chloride (Normal Saline) 1,000 mls @ 75 mls/hr IV ONETIME [facility] Stop: 11/14/21 06:04 Last Admin: 11/13/21 19:01 Dose: 75 mls/hr Documented by: Lidocaine HCl (Lidocaine 2% Viscous Solution 15 Ml Cup) 15 ml PO ONETIME ONE Stop: 11/13/21 03:13 Last Admin: 11/13/21 03:36 Dose: 15 ml Documented by: Ondansetron HCl (Ondansetron 4 Mg/2 Ml Sdv) 4 mg IVPUSH ONETIME ONE Stop: 11/13/21 01:41 Last Admin: 11/13/21 02:10 Dose: 4 mg Documented by: - Exam General: Alert, Oriented, Cooperative, Mild Distress HEENT: Pupils Equal, Pupils Reactive. No: Scleral Icterus Neck: Supple Lungs: Clear to Auscultation, Normal Respiratory Effort Cardiovascular: Regular Rate, Regular Rhythm, No Murmurs GI/Abdominal Exam: Soft, Non-Tender, Distended (mild), Abnormal Bowel Sounds (bowel sounds, slightly high-pitched today.). No: Guarding, Rigid, Rebound (Female) Exam: Deferred Back Exam: Normal Inspection, Full Range of Motion Peripheral Pulses: 4+: Posterior Tibial (L), Posterior Tibial (R), Dorsalis Pedis (L), Dorsalis Pedis (R) Skin: Warm, Dry, Intact Neurological: No New Focal Deficit Psy/Mental Status: Alert, Normal Affect, Normal Mood Sepsis Event Note - Evaluation Sepsis Screening Result: No Definite Risk - Focused Exam Vital Signs: Vital Signs Temp Pulse Resp BP BP Pulse Ox 11/14/21 07:00 98.3 F 85 16 122/61 97 11/14/21 03:00 96.2 F L 82 16 127/70 97 11/13/21 23:00 98.2 F 87 16 107/66 97 Consult PN Assessment/Plan (1) Large bowel obstruction SNOMED Code(s): 354285865 Code(s): K56.609 - UNSP INTESTNL OBST, UNSP TO PARTIAL VERSUS COMPLETE OBST Priority: High Current Visit: Yes (2) SBO (small bowel obstruction) SNOMED Code(s): 873033703 Code(s): K56.609 - UNSP INTESTNL OBST, UNSP TO PARTIAL VERSUS COMPLETE OBST Priority: High Current Visit: Yes Problem List Initiated/Reviewed/Updated: Yes Plan: Patient is symptomatically unchanged from yesterday. She does have mild abdominal distention but no focal tenderness. Bowel sounds are more active today and slightly high-pitched. Abdominal films and CT scan have not been obtained today.
[2021-11-14] MEDS ORDERED: Dextrose 5%-0.9% NaCl 1,000 ML IV SCH (11:15)
--- NOTE | 2021-11-14 12:14 | CR ---
Indication: Follow-up small bowel obstruction. Technique: Single-view of the abdomen Comparison: November 13, 2021 at 3:57 a.m. Findings: Nasogastric tube ends in the stomach. Persistent significant dilation bowel compatible with small-bowel obstruction. There is gas within the colon so this is either an early complete obstruction or incomplete obstruction. Degree of gaseous distention of the small bowel has mildly improved Impression: Persistent findings of an obstruction as outlined above Dictated by Sheng Merritt MD @ 11/14/2021 12:12:24 PM (Electronically Signed)
--- NOTE | 2021-11-14 13:45 | PCM.PN ---
<Stephen Kebede - Last Filed: 11/14/21 13:43> - General Info Date of Service: 11/14/21 Subjective Update: Patient admitted for SBO, NG tube in place, n.p.o. Abdominal distention is improved. Patient denies abdominal pain. Patient has been walking. She has had 1 bowel movement this morning. Patient denies fever, chills, nausea, vomiting. - Review of Systems General: Denies: Fever, Chills Pulmonary: Denies: Shortness of Breath, Cough Cardiovascular: Denies: Chest Pain, Palpitations Gastrointestinal: Reports: Constipation, Flatus. Denies: Abdominal Pain, Diarrhea, Nausea, Vomiting Genitourinary: Denies: Dysuria - Patient Data Vitals - Most Recent: Last Vital Signs Temp 98.3 F 11/14/21 07:00 Pulse 85 11/14/21 07:00 Resp 16 11/14/21 07:00 BP 122/61 11/14/21 07:00 Pulse Ox 97 11/14/21 07:56 Weight - Most Recent: 264 lb 12.403 oz I&O - Last 24 Hours: Intake & Output 11/13/21 11/14/21 11/14/21 22:59 06:59 14:59 Intake Total 0 Output Total 665 250 Balance -665 -250 Lab Results Last 24 Hours: Laboratory Results - last 24 hr 11/14/21 11/14/21 11/14/21 Range/Units 05:10 05:30 05:30 WBC 5.55 (4.0-11.0) K/uL RBC 4.33 (4.30-5.90) M/uL Hgb 13.2 (12.0-16.0) g/dL Hct 39.7 (36.0-46.0) % MCV 91.7 (80.0-98.0) fL MCH 30.5 (27.0-32.0) pg MCHC 33.2 (31.0-37.0) g/dL RDW Std Deviation 44.6 (28.0-62.0) fl RDW Coeff of Papo 13 (11.0-15.0) % Plt Count 452 H (150-400) K/uL MPV 10.90 (7.40-12.00) fL Nucleated RBC % 0.0 /100WBC Nucleated RBCs # 0 K/uL Sodium 140 (136-145) mmol/L Potassium 4.0 (3.5-5.1) mmol/L Chloride 101 (98-107) mmol/L Carbon Dioxide 26.5 (21.0-32.0) mmol/L BUN 20 H (7.0-18.0) mg/dL Creatinine 0.7 (0.6-1.0) mg/dL Est Cr Clr Drug Dosing 79.75 mL/min Estimated GFR (MDRD) > 60.0 ml/min Glucose 112 H (74-106) mg/dL POC Glucose 107 H (70-99) mg/dL Calcium 9.0 (8.5-10.1) mg/dL Total Bilirubin 0.5 (0.2-1.0) mg/dL AST 15 (15-37) IU/L ALT 18 (14-63) IU/L Alkaline Phosphatase 69 (46-116) U/L Total Protein 6.5 (6.4-8.2) g/dL Albumin 3.4 (3.4-5.0) g/dL Globulin 3.1 (2.6-4.0) g/dL Albumin/Globulin Ratio 1.1 (0.9-1.6) Med Orders - Current: Current Medications Albuterol/Ipratropium (Albuterol/Ipratropium 3.0-0.5 Mg/3 Ml Neb Soln) 3 ml NEB Q4HRRT PRN PRN Reason: Shortness Of Breath/wheezing Ceftriaxone Sodium/Dextrose 2 (gm/ Premix) 50 mls @ 100 mls/hr IV Q24H [facility] Last Admin: 11/14/21 07:41 Dose: 100 mls/hr Documented by: Dextrose/Sodium Chloride (Dextrose 5%-Normal Saline) 1,000 mls @ 75 mls/hr IV ASDIRECTED [facility] Stop: 11/15/21 00:34 Last Admin: 11/14/21 12:18 Dose: 75 mls/hr Documented by: Ondansetron HCl (Ondansetron 4 Mg/2 Ml Sdv) 4 mg IVPUSH Q6H PRN PRN Reason: Nausea/Vomiting Sodium Chloride (Sodium Chloride 0.9% 10 Ml Syringe) 10 ml FLUSH ASDIRECTED PRN PRN Reason: Keep Vein Open Sodium Chloride (Sodium Chloride 0.9% 2.5 Ml Syringe) 2.5 ml FLUSH ASDIRECTED PRN PRN Reason: Keep Vein Open Discontinued Medications Sodium Chloride (Normal Saline) 1,000 mls @ 999 mls/hr IV .Bolus ONE Stop: 11/13/21 02:40 Last Admin: 11/13/21 02:10 Dose: 999 mls/hr Documented by: Potassium Chloride/Dextrose/Sod Cl (D5 1/2 Ns W/ 20 Meq/L Kcl) 1,000 mls @ 100 mls/hr IV ASDIRECTED [facility] Last Admin: 11/13/21 03:35 Dose: 100 mls/hr Documented by: Ceftriaxone Sodium/Dextrose 1 (gm/ Premix) 50 mls @ 100 mls/hr IV ONETIME ONE Stop: 11/13/21 03:51 Last Admin: 11/13/21 03:35 Dose: 100 mls/hr Documented by: Sodium Chloride (Normal Saline) 1,000 mls @ 75 mls/hr IV ONETIME [facility] Stop: 11/14/21 06:04 Last Admin: 11/13/21 19:01 Dose: 75 mls/hr Documented by: Lidocaine HCl (Lidocaine 2% Viscous Solution 15 Ml Cup) 15 ml PO ONETIME ONE Stop: 11/13/21 03:13 Last Admin: 11/13/21 03:36 Dose: 15 ml Documented by: Ondansetron HCl (Ondansetron 4 Mg/2 Ml Sdv) 4 mg IVPUSH ONETIME ONE Stop: 11/13/21 01:41 Last Admin: 11/13/21 02:10 Dose: 4 mg Documented by: - Exam General: Alert, Oriented, Cooperative, No Acute Distress HEENT: Pupils Equal, Pupils Reactive Neck: Supple, Trachea Midline Lungs: Clear to Auscultation, Normal Respiratory Effort Cardiovascular: Regular Rate, Regular Rhythm GI/Abdominal Exam: Soft, Non-Tender, Distended Back Exam: Normal Inspection Extremities: Normal Inspection. No: Lucita's Sign, Leg Pain - Patient Data Lab Results Last 24 hrs: Laboratory Results - last 24 hr 11/14/21 11/14/21 11/14/21 Range/Units 05:10 05:30 05:30 WBC 5.55 (4.0-11.0) K/uL RBC 4.33 (4.30-5.90) M/uL Hgb 13.2 (12.0-16.0) g/dL Hct 39.7 (36.0-46.0) % MCV 91.7 (80.0-98.0) fL MCH 30.5 (27.0-32.0) pg MCHC 33.2 (31.0-37.0) g/dL RDW Std Deviation 44.6 (28.0-62.0) fl RDW Coeff of Papo 13 (11.0-15.0) % Plt Count 452 H (150-400) K/uL MPV 10.90 (7.40-12.00) fL Nucleated RBC % 0.0 /100WBC Nucleated RBCs # 0 K/uL Sodium 140 (136-145) mmol/L Potassium 4.0 (3.5-5.1) mmol/L Chloride 101 (98-107) mmol/L Carbon Dioxide 26.5 (21.0-32.0) mmol/L BUN 20 H (7.0-18.0) mg/dL Creatinine 0.7 (0.6-1.0) mg/dL Est Cr Clr Drug Dosing 79.75 mL/min Estimated GFR (MDRD) > 60.0 ml/min Glucose 112 H (74-106) mg/dL POC Glucose 107 H (70-99) mg/dL Calcium 9.0 (8.5-10.1) mg/dL Total Bilirubin 0.5 (0.2-1.0) mg/dL AST 15 (15-37) IU/L ALT 18 (14-63) IU/L Alkaline Phosphatase 69 (46-116) U/L Total Protein 6.5 (6.4-8.2) g/dL Albumin 3.4 (3.4-5.0) g/dL Globulin 3.1 (2.6-4.0) g/dL Albumin/Globulin Ratio 1.1 (0.9-1.6) Result Diagrams: 11/14/21 05:30 11/14/21 05:30 Sepsis Event Note - Evaluation Sepsis Screening Result: No Definite Risk - Focused Exam Vital Signs: Vital Signs Temp Pulse Resp BP BP Pulse Ox Pulse Ox 11/14/21 07:56 97 11/14/21 07:00 98.3 F 85 16 122/61 97 11/14/21 03:00 96.2 F L 82 16 127/70 97 - Problem List & Annotations (1) UTI (urinary tract infection) SNOMED Code(s): 62974418 Code(s): N39.0 - URINARY TRACT INFECTION, SITE NOT SPECIFIED Status: Acute Current Visit: Yes (2) SBO (small bowel obstruction) SNOMED Code(s): 670763461 Code(s): K56.609 - UNSP INTESTNL OBST, UNSP TO PARTIAL VERSUS COMPLETE OBST Status: Acute Priority: High Current Visit: Yes - Problem List Review Problem List Initiated/Reviewed/Updated: Yes - My Orders Last 24 Hours: My Active Orders 11/14/21 11:15 Dextrose 5%-0.9% NaCl [Dextrose 5%-Normal Saline] 1,000 ml IV ASDIRECTED 11/15/21 05:11 CBC W/O DIFF,HEMOGRAM [HEME] DAILY COMPREHENSIVE METABOLIC PN,CMP [CHEM] DAILY 11/16/21 05:11 CBC W/O DIFF,HEMOGRAM [HEME] DAILY COMPREHENSIVE METABOLIC PN,CMP [CHEM] DAILY - Plan Plan:: Small bowel obstruction: -Conservative management. IV fluids D5. KUB imaging today. Urinary tract infection: -Ceftriaxone. <Marshall Esteves - Last Filed: 11/15/21 11:32> - Patient Data Vitals - Most Recent: Last Vital Signs Temp 96.8 F L 11/15/21 08:17 Pulse 86 11/15/21 08:17 Resp 22 H 11/15/21 08:17 BP 131/66 11/15/21 08:17 Pulse Ox 97 11/15/21 08:17 I&O - Last 24 Hours: Intake & Output 11/14/21 11/15/21 11/15/21 22:59 06:59 14:59 Intake Total 640 100 Output Total 500 750 Balance 140 -650 Lab Results Last 24 Hours: Laboratory Results - last 24 hr 11/14/21 11/14/21 11/15/21 Range/Units 15:23 18:30 00:39 WBC (4.0-11.0) K/uL RBC (4.30-5.90) M/uL Hgb (12.0-16.0) g/dL Hct (36.0-46.0) % MCV (80.0-98.0) fL MCH (27.0-32.0) pg MCHC (31.0-37.0) g/dL RDW Std Deviation (28.0-62.0) fl RDW Coeff of Papo (11.0-15.0) % Plt Count (150-400) K/uL MPV (7.40-12.00) fL Nucleated RBC % /100WBC Nucleated RBCs # K/uL Sodium (136-145) mmol/L Potassium (3.5-5.1) mmol/L Chloride (98-107) mmol/L Carbon Dioxide (21.0-32.0) mmol/L BUN (7.0-18.0) mg/dL Creatinine (0.6-1.0) mg/dL Est Cr Clr Drug Dosing mL/min Estimated GFR (MDRD) ml/min Glucose (74-106) mg/dL POC Glucose 97 96 104 H (70-99) mg/dL Calcium (8.5-10.1) mg/dL Total Bilirubin (0.2-1.0) mg/dL AST (15-37) IU/L ALT (14-63) IU/L Alkaline Phosphatase (46-116) U/L Total Protein (6.4-8.2) g/dL Albumin (3.4-5.0) g/dL Globulin (2.6-4.0) g/dL Albumin/Globulin Ratio (0.9-1.6) 11/15/21 11/15/21 11/15/21 Range/Units 05:25 05:25 06:05 WBC 5.92 (4.0-11.0) K/uL RBC 4.15 L (4.30-5.90) M/uL Hgb 12.5 (12.0-16.0) g/dL Hct 38.5 (36.0-46.0) % MCV 92.8 (80.0-98.0) fL MCH 30.1 (27.0-32.0) pg MCHC 32.5 (31.0-37.0) g/dL RDW Std Deviation 46.0 (28.0-62.0) fl RDW Coeff of Papo 14 (11.0-15.0) % Plt Count 440 H (150-400) K/uL MPV 10.50 (7.40-12.00) fL Nucleated RBC % 0.0 /100WBC Nucleated RBCs # 0 K/uL Sodium 146 H (136-145) mmol/L Potassium 3.9 (3.5-5.1) mmol/L Chloride 105 (98-107) mmol/L Carbon Dioxide 31.1 (21.0-32.0) mmol/L BUN 17 (7.0-18.0) mg/dL Creatinine 0.6 (0.6-1.0) mg/dL Est Cr Clr Drug Dosing 93.04 mL/min Estimated GFR (MDRD) > 60.0 ml/min Glucose 105 (74-106) mg/dL POC Glucose 92 (70-99) mg/dL Calcium 9.2 (8.5-10.1) mg/dL Total Bilirubin 0.3 (0.2-1.0) mg/dL AST 14 L (15-37) IU/L ALT 11 L (14-63) IU/L Alkaline Phosphatase 68 (46-116) U/L Total Protein 6.2 L (6.4-8.2) g/dL Albumin 3.2 L (3.4-5.0) g/dL Globulin 3.0 (2.6-4.0) g/dL Albumin/Globulin Ratio 1.1 (0.9-1.6) [place] Results Last 24 Hours: Microbiology 11/13/21 03:05 Urine Culture - Final Urine Med Orders - Current: Current Medications Albuterol/Ipratropium (Albuterol/Ipratropium 3.0-0.5 Mg/3 Ml Neb Soln) 3 ml NEB Q4HRRT PRN PRN Reason: Shortness Of Breath/wheezing Enoxaparin Sodium (Enoxaparin 40 Mg/0.4 Ml Syringe) 40 mg SUBCUT Q24H [facility] Last Admin: 11/15/21 08:06 Dose: 40 mg Documented by: Ceftriaxone Sodium/Dextrose 2 (gm/ Premix) 50 mls @ 100 mls/hr IV Q24H [facility] Last Admin: 11/15/21 07:47 Dose: 100 mls/hr Documented by: Ondansetron HCl (Ondansetron 4 Mg/2 Ml Sdv) 4 mg IVPUSH Q6H PRN PRN Reason: Nausea/Vomiting Sodium Chloride (Sodium Chloride 0.9% 10 Ml Syringe) 10 ml FLUSH ASDIRECTED PRN PRN Reason: Keep Vein Open Sodium Chloride (Sodium Chloride 0.9% 2.5 Ml Syringe) 2.5 ml FLUSH ASDIRECTED PRN PRN Reason: Keep Vein Open Discontinued Medications Sodium Chloride (Normal Saline) 1,000 mls @ 999 mls/hr IV .Bolus ONE Stop: 11/13/21 02:40 Last Admin: 11/13/21 02:10 Dose: 999 mls/hr Documented by: Potassium Chloride/Dextrose/Sod Cl (D5 1/2 Ns W/ 20 Meq/L Kcl) 1,000 mls @ 100 mls/hr IV ASDIRECTED [facility] Last Admin: 11/13/21 03:35 Dose: 100 mls/hr Documented by: Ceftriaxone Sodium/Dextrose 1 (gm/ Premix) 50 mls @ 100 mls/hr IV ONETIME ONE Stop: 11/13/21 03:51 Last Admin: 11/13/21 03:35 Dose: 100 mls/hr Documented by: Sodium Chloride (Normal Saline) 1,000 mls @ 75 mls/hr IV ONETIME [facility] Stop: 11/14/21 06:04 Last Admin: 11/13/21 19:01 Dose: 75 mls/hr Documented by: Dextrose/Sodium Chloride (Dextrose 5%-Normal Saline) 1,000 mls @ 75 mls/hr IV ASDIRECTED [facility] Stop: 11/15/21 00:34 Last Admin: 11/14/21 12:18 Dose: 75 mls/hr Documented by: Lidocaine HCl (Lidocaine 2% Viscous Solution 15 Ml Cup) 15 ml PO ONETIME ONE Stop: 11/13/21 03:13 Last Admin: 11/13/21 03:36 Dose: 15 ml Documented by: Ondansetron HCl (Ondansetron 4 Mg/2 Ml Sdv) 4 mg IVPUSH ONETIME ONE Stop: 11/13/21 01:41 Last Admin: 11/13/21 02:10 Dose: 4 mg Documented by: - Patient Data Lab Results Last 24 hrs: Laboratory Results - last 24 hr 11/14/21 11/14/21 11/15/21 Range/Units 15:23 18:30 00:39 WBC (4.0-11.0) K/uL RBC (4.30-5.90) M/uL Hgb (12.0-16.0) g/dL Hct (36.0-46.0) % MCV (80.0-98.0) fL MCH (27.0-32.0) pg MCHC (31.0-37.0) g/dL RDW Std Deviation (28.0-62.0) fl RDW Coeff of Papo (11.0-15.0) % Plt Count (150-400) K/uL MPV (7.40-12.00) fL Nucleated RBC % /100WBC Nucleated RBCs # K/uL Sodium (136-145) mmol/L Potassium (3.5-5.1) mmol/L Chloride (98-107) mmol/L Carbon Dioxide (21.0-32.0) mmol/L BUN (7.0-18.0) mg/dL Creatinine (0.6-1.0) mg/dL Est Cr Clr Drug Dosing mL/min Estimated GFR (MDRD) ml/min Glucose (74-106) mg/dL POC Glucose 97 96 104 H (70-99) mg/dL Calcium (8.5-10.1) mg/dL Total Bilirubin (0.2-1.0) mg/dL AST (15-37) IU/L ALT (14-63) IU/L Alkaline Phosphatase (46-116) U/L Total Protein (6.4-8.2) g/dL Albumin (3.4-5.0) g/dL Globulin (2.6-4.0) g/dL Albumin/Globulin Ratio (0.9-1.6) 11/15/21 11/15/21 11/15/21 Range/Units 05:25 05:25 06:05 WBC 5.92 (4.0-11.0) K/uL RBC 4.15 L (4.30-5.90) M/uL Hgb 12.5 (12.0-16.0) g/dL Hct 38.5 (36.0-46.0) % MCV 92.8 (80.0-98.0) fL MCH 30.1 (27.0-32.0) pg MCHC 32.5 (31.0-37.0) g/dL RDW Std Deviation 46.0 (28.0-62.0) fl RDW Coeff of Papo 14 (11.0-15.0) % Plt Count 440 H (150-400) K/uL MPV 10.50 (7.40-12.00) fL Nucleated RBC % 0.0 /100WBC Nucleated RBCs # 0 K/uL Sodium 146 H (136-145) mmol/L Potassium 3.9 (3.5-5.1) mmol/L Chloride 105 (98-107) mmol/L Carbon Dioxide 31.1 (21.0-32.0) mmol/L BUN 17 (7.0-18.0) mg/dL Creatinine 0.6 (0.6-1.0) mg/dL Est Cr Clr Drug Dosing 93.04 mL/min Estimated GFR (MDRD) > 60.0 ml/min Glucose 105 (74-106) mg/dL POC Glucose 92 (70-99) mg/dL Calcium 9.2 (8.5-10.1) mg/dL Total Bilirubin 0.3 (0.2-1.0) mg/dL AST 14 L (15-37) IU/L ALT 11 L (14-63) IU/L Alkaline Phosphatase 68 (46-116) U/L Total Protein 6.2 L (6.4-8.2) g/dL Albumin 3.2 L (3.4-5.0) g/dL Globulin 3.0 (2.6-4.0) g/dL Albumin/Globulin Ratio 1.1 (0.9-1.6) Result Diagrams: 11/15/21 05:25 11/15/21 05:25 [place] Results Last 24 hrs: Microbiology 11/13/21 03:05 Urine Culture - Final Urine Sepsis Event Note - Focused Exam Vital Signs: Vital Signs Temp Pulse Resp BP Pulse Ox 11/15/21 08:17 96.8 F L 86 22 H 131/66 97 11/15/21 04:00 97.0 F 80 17 111/66 97 - My Orders Last 24 Hours: My Active Orders 11/14/21 12:00 Communication Order [RC] ASDIRECTED - Plan Plan:: I agree with the above assessment and plan check CT abd/pelvis with IV and oral contrast. General surgery is following.
--- NOTE | 2021-11-14 14:16 | PCM.SN.2 ---
- Free Text/Narrative Note: Abdominal films reviewed. There is definitely air in the proximal colon. Recommend CT of abdomen and pelvis to further delineate etiology of obstruction.
--- NOTE | 2021-11-15 06:00 | CR ---
Indication: Bowel obstruction. Technique: Abdomen 1 view. Comparison: 11/14/2021. Findings/Impression: Bowel: Persistent diffuse dilatation of the small bowel consistent with small bowel obstruction. The degree of dilatation is unchanged from yesterday`s exam. Colon appears decompressed. Soft tissues: No sign of free air. No sign of soft tissue mass. No suspicious calcifications. Bones: Unremarkable for age. Dictated by Elier Wiggins MD @ 11/15/2021 5:59:50 AM (Electronically Signed)
[2021-11-15 07:41] LABS: BLOOD UREA NITROGEN,BUN 17 mg/dL (7.0-18.0); CARBON DIOXIDE,CO2 31.1 mmol/L (21.0-32.0); CHLORIDE,CL 105 mmol/L (98-107); GLUCOSE RANDOM 105 mg/dL (74-106); POTASSIUM,K 3.9 mmol/L (3.5-5.1); SODIUM,NA 146 mmol/L (136-145)
[2021-11-15] MEDS: cefTRIAXone 2 GM in Premix Bag 1 BAG IV SCH (07:47)
[2021-11-15] MEDS ORDERED: Enoxaparin 40 MG/0.4 ML Syringe SUBCUT SCH (09:00)
--- NOTE | 2021-11-15 12:12 | PCM.PN ---
- General Info Date of Service: 11/15/21 Admission Dx/Problem (Free Text): High-grade bowel obstruction, possible large bowel. Subjective Update: Patient admitted for SBO, NG tube in place, n.p.o. Abdominal distention is improving patient denies abdominal pain. Patient had a bowel movement yesterday. Patient still complains of intermittent episodes of abdominal fullness and distention. Patient has been walking. Patient denies fever, chills, nausea, vomiting. - Review of Systems General: Denies: Fever, Chills Pulmonary: Denies: Shortness of Breath, Pleuritic Chest Pain Cardiovascular: Denies: Chest Pain, Palpitations Gastrointestinal: Reports: Flatus. Denies: Constipation, Nausea, Vomiting Genitourinary: Denies: Dysuria Musculoskeletal: Denies: Leg Pain Neurological: Denies: Confusion, Dizziness - Patient Data Vitals - Most Recent: Last Vital Signs Temp 96.4 F L 11/15/21 11:25 Pulse 88 11/15/21 11:25 Resp 20 11/15/21 11:25 BP 146/65 H 11/15/21 11:25 Pulse Ox 99 11/15/21 11:25 Weight - Most Recent: 264 lb 12.403 oz I&O - Last 24 Hours: Intake & Output 11/14/21 11/15/21 11/15/21 22:59 06:59 14:59 Intake Total 640 100 Output Total 500 750 Balance 140 -650 Lab Results Last 24 Hours: Laboratory Results - last 24 hr 11/14/21 11/14/21 11/15/21 Range/Units 15:23 18:30 00:39 WBC (4.0-11.0) K/uL RBC (4.30-5.90) M/uL Hgb (12.0-16.0) g/dL Hct (36.0-46.0) % MCV (80.0-98.0) fL MCH (27.0-32.0) pg MCHC (31.0-37.0) g/dL RDW Std Deviation (28.0-62.0) fl RDW Coeff of Papo (11.0-15.0) % Plt Count (150-400) K/uL MPV (7.40-12.00) fL Nucleated RBC % /100WBC Nucleated RBCs # K/uL Sodium (136-145) mmol/L Potassium (3.5-5.1) mmol/L Chloride (98-107) mmol/L Carbon Dioxide (21.0-32.0) mmol/L BUN (7.0-18.0) mg/dL Creatinine (0.6-1.0) mg/dL Est Cr Clr Drug Dosing mL/min Estimated GFR (MDRD) ml/min Glucose (74-106) mg/dL POC Glucose 97 96 104 H (70-99) mg/dL Calcium (8.5-10.1) mg/dL Total Bilirubin (0.2-1.0) mg/dL AST (15-37) IU/L ALT (14-63) IU/L Alkaline Phosphatase (46-116) U/L Total Protein (6.4-8.2) g/dL Albumin (3.4-5.0) g/dL Globulin (2.6-4.0) g/dL Albumin/Globulin Ratio (0.9-1.6) 11/15/21 11/15/21 11/15/21 Range/Units 05:25 05:25 06:05 WBC 5.92 (4.0-11.0) K/uL RBC 4.15 L (4.30-5.90) M/uL Hgb 12.5 (12.0-16.0) g/dL Hct 38.5 (36.0-46.0) % MCV 92.8 (80.0-98.0) fL MCH 30.1 (27.0-32.0) pg MCHC 32.5 (31.0-37.0) g/dL RDW Std Deviation 46.0 (28.0-62.0) fl RDW Coeff of Papo 14 (11.0-15.0) % Plt Count 440 H (150-400) K/uL MPV 10.50 (7.40-12.00) fL Nucleated RBC % 0.0 /100WBC Nucleated RBCs # 0 K/uL Sodium 146 H (136-145) mmol/L Potassium 3.9 (3.5-5.1) mmol/L Chloride 105 (98-107) mmol/L Carbon Dioxide 31.1 (21.0-32.0) mmol/L BUN 17 (7.0-18.0) mg/dL Creatinine 0.6 (0.6-1.0) mg/dL Est Cr Clr Drug Dosing 93.04 mL/min Estimated GFR (MDRD) > 60.0 ml/min Glucose 105 (74-106) mg/dL POC Glucose 92 (70-99) mg/dL Calcium 9.2 (8.5-10.1) mg/dL Total Bilirubin 0.3 (0.2-1.0) mg/dL AST 14 L (15-37) IU/L ALT 11 L (14-63) IU/L Alkaline Phosphatase 68 (46-116) U/L Total Protein 6.2 L (6.4-8.2) g/dL Albumin 3.2 L (3.4-5.0) g/dL Globulin 3.0 (2.6-4.0) g/dL Albumin/Globulin Ratio 1.1 (0.9-1.6) [place] Results Last 24 Hours: Microbiology 11/13/21 03:05 Urine Culture - Final Urine Med Orders - Current: Current Medications Albuterol/Ipratropium (Albuterol/Ipratropium 3.0-0.5 Mg/3 Ml Neb Soln) 3 ml NEB Q4HRRT PRN PRN Reason: Shortness Of Breath/wheezing Enoxaparin Sodium (Enoxaparin 40 Mg/0.4 Ml Syringe) 40 mg SUBCUT Q24H [facility] Last Admin: 11/15/21 08:06 Dose: 40 mg Documented by: Ceftriaxone Sodium/Dextrose 2 (gm/ Premix) 50 mls @ 100 mls/hr IV Q24H [facility] Last Admin: 11/15/21 07:47 Dose: 100 mls/hr Documented by: Ondansetron HCl (Ondansetron 4 Mg/2 Ml Sdv) 4 mg IVPUSH Q6H PRN PRN Reason: Nausea/Vomiting Sodium Chloride (Sodium Chloride 0.9% 10 Ml Syringe) 10 ml FLUSH ASDIRECTED PRN PRN Reason: Keep Vein Open Sodium Chloride (Sodium Chloride 0.9% 2.5 Ml Syringe) 2.5 ml FLUSH ASDIRECTED PRN PRN Reason: Keep Vein Open Discontinued Medications Sodium Chloride (Normal Saline) 1,000 mls @ 999 mls/hr IV .Bolus ONE Stop: 11/13/21 02:40 Last Admin: 11/13/21 02:10 Dose: 999 mls/hr Documented by: Potassium Chloride/Dextrose/Sod Cl (D5 1/2 Ns W/ 20 Meq/L Kcl) 1,000 mls @ 100 mls/hr IV ASDIRECTED [facility] Last Admin: 11/13/21 03:35 Dose: 100 mls/hr Documented by: Ceftriaxone Sodium/Dextrose 1 (gm/ Premix) 50 mls @ 100 mls/hr IV ONETIME ONE Stop: 11/13/21 03:51 Last Admin: 11/13/21 03:35 Dose: 100 mls/hr Documented by: Sodium Chloride (Normal Saline) 1,000 mls @ 75 mls/hr IV ONETIME [facility] Stop: 11/14/21 06:04 Last Admin: 11/13/21 19:01 Dose: 75 mls/hr Documented by: Dextrose/Sodium Chloride (Dextrose 5%-Normal Saline) 1,000 mls @ 75 mls/hr IV ASDIRECTED [facility] Stop: 11/15/21 00:34 Last Admin: 11/14/21 12:18 Dose: 75 mls/hr Documented by: Lidocaine HCl (Lidocaine 2% Viscous Solution 15 Ml Cup) 15 ml PO ONETIME ONE Stop: 11/13/21 03:13 Last Admin: 11/13/21 03:36 Dose: 15 ml Documented by: Ondansetron HCl (Ondansetron 4 Mg/2 Ml Sdv) 4 mg IVPUSH ONETIME ONE Stop: 11/13/21 01:41 Last Admin: 11/13/21 02:10 Dose: 4 mg Documented by: - Exam General: Alert, Oriented, Cooperative HEENT: Pupils Equal, Pupils Reactive Neck: Supple, Trachea Midline Lungs: Clear to Auscultation Cardiovascular: Regular Rate, Regular Rhythm GI/Abdominal Exam: Soft, Non-Tender, Distended, Rigid. No: Guarding, Rebound, Tender Back Exam: Normal Inspection Extremities: Normal Inspection. No: No Pedal Edema, Lucita's Sign, Leg Pain Peripheral Pulses: 2+: Dorsalis Pedis (L), Dorsalis Pedis (R) Skin: Warm, Dry, Intact Neurological: No New Focal Deficit - Patient Data Lab Results Last 24 hrs: Laboratory Results - last 24 hr 11/14/21 11/14/21 11/15/21 Range/Units 15:23 18:30 00:39 WBC (4.0-11.0) K/uL RBC (4.30-5.90) M/uL Hgb (12.0-16.0) g/dL Hct (36.0-46.0) % MCV (80.0-98.0) fL MCH (27.0-32.0) pg MCHC (31.0-37.0) g/dL RDW Std Deviation (28.0-62.0) fl RDW Coeff of Papo (11.0-15.0) % Plt Count (150-400) K/uL MPV (7.40-12.00) fL Nucleated RBC % /100WBC Nucleated RBCs # K/uL Sodium (136-145) mmol/L Potassium (3.5-5.1) mmol/L Chloride (98-107) mmol/L Carbon Dioxide (21.0-32.0) mmol/L BUN (7.0-18.0) mg/dL Creatinine (0.6-1.0) mg/dL Est Cr Clr Drug Dosing mL/min Estimated GFR (MDRD) ml/min Glucose (74-106) mg/dL POC Glucose 97 96 104 H (70-99) mg/dL Calcium (8.5-10.1) mg/dL Total Bilirubin (0.2-1.0) mg/dL AST (15-37) IU/L ALT (14-63) IU/L Alkaline Phosphatase (46-116) U/L Total Protein (6.4-8.2) g/dL Albumin (3.4-5.0) g/dL Globulin (2.6-4.0) g/dL Albumin/Globulin Ratio (0.9-1.6) 11/15/21 11/15/21 11/15/21 Range/Units 05:25 05:25 06:05 WBC 5.92 (4.0-11.0) K/uL RBC 4.15 L (4.30-5.90) M/uL Hgb 12.5 (12.0-16.0) g/dL Hct 38.5 (36.0-46.0) % MCV 92.8 (80.0-98.0) fL MCH 30.1 (27.0-32.0) pg MCHC 32.5 (31.0-37.0) g/dL RDW Std Deviation 46.0 (28.0-62.0) fl RDW Coeff of Papo 14 (11.0-15.0) % Plt Count 440 H (150-400) K/uL MPV 10.50 (7.40-12.00) fL Nucleated RBC % 0.0 /100WBC Nucleated RBCs # 0 K/uL Sodium 146 H (136-145) mmol/L Potassium 3.9 (3.5-5.1) mmol/L Chloride 105 (98-107) mmol/L Carbon Dioxide 31.1 (21.0-32.0) mmol/L BUN 17 (7.0-18.0) mg/dL Creatinine 0.6 (0.6-1.0) mg/dL Est Cr Clr Drug Dosing 93.04 mL/min Estimated GFR (MDRD) > 60.0 ml/min Glucose 105 (74-106) mg/dL POC Glucose 92 (70-99) mg/dL Calcium 9.2 (8.5-10.1) mg/dL Total Bilirubin 0.3 (0.2-1.0) mg/dL AST 14 L (15-37) IU/L ALT 11 L (14-63) IU/L Alkaline Phosphatase 68 (46-116) U/L Total Protein 6.2 L (6.4-8.2) g/dL Albumin 3.2 L (3.4-5.0) g/dL Globulin 3.0 (2.6-4.0) g/dL Albumin/Globulin Ratio 1.1 (0.9-1.6) Result Diagrams: 11/15/21 05:25 11/15/21 05:25 [place] Results Last 24 hrs: Microbiology 11/13/21 03:05 Urine Culture - Final Urine Sepsis Event Note - Evaluation Sepsis Screening Result: No Definite Risk - Focused Exam Vital Signs: Vital Signs Temp Pulse Resp BP Pulse Ox 11/15/21 11:25 96.4 F L 88 20 146/65 H 99 11/15/21 08:17 96.8 F L 86 22 H 131/66 97 11/15/21 04:00 97.0 F 80 17 111/66 97 - Problem List & Annotations (1) UTI (urinary tract infection) SNOMED Code(s): 85110669 Code(s): N39.0 - URINARY TRACT INFECTION, SITE NOT SPECIFIED Status: Acute Current Visit: Yes (2) SBO (small bowel obstruction) SNOMED Code(s): 278198014 Code(s): K56.609 - UNSP INTESTNL OBST, UNSP TO PARTIAL VERSUS COMPLETE OBST Status: Acute Priority: High Current Visit: Yes - Problem List Review Problem List Initiated/Reviewed/Updated: Yes - My Orders Last 24 Hours: My Active Orders 11/15/21 07:31 Abdomen Pelvis w Cont [CT] Urgent 11/15/21 09:00 Enoxaparin [Lovenox] 40 mg SUBCUT Q24H 11/16/21 05:11 CBC W/O DIFF,HEMOGRAM [HEME] DAILY COMPREHENSIVE METABOLIC PN,CMP [CHEM] DAILY - Plan Plan:: Patient symptoms are improving. CT abdomen pelvis with IV and oral contrast today. We will follow up the results. General surgery is following.
--- NOTE | 2021-11-15 12:51 | CT ---
INDICATION: Small bowel obstruction of uncertain etiology. TECHNIQUE: CT abdomen and pelvis acquired with 100 cc Isovue 370 IV and oral contrast. COMPARISON: None. FINDINGS: There is a soft tissue mass measuring approximately 3 cm in the sigmoid colon as demonstrated on the axial series 201, image 132, sagittal series 204, image 97, and coronal series 203, image 66. This mass is obstructing the colon resulting in severe fluid distension of the colon proximal to the mass. Small bowel is distended to a lesser extent. Small cavernous hemangioma is in the anterior right lobe of the liver. No suspicious liver lesions. Unremarkable gallbladder. No biliary dilatation. The spleen, adrenal glands and pancreas are within normal limits. The kidneys are unremarkable. Pelvic organs are unremarkable. No lymphadenopathy evident. Small amount of free fluid in the pelvis and around the liver. No free air. No omental masses. The lung bases are clear. IMPRESSION: 1. A 3 cm soft tissue mass in the sigmoid colon is a malignancy until proven otherwise. This is obstructing and causing marked distension of the colon proximal to the mass. 2. No signs of metastatic disease in the abdomen or pelvis. Please note that all CT scans at this facility use dose modulation, iterative reconstruction, and/or weight-based dosing when appropriate to reduce radiation dose to as low as reasonably achievable. Dictated by Elier Wiggins MD @ 11/15/2021 12:50:22 PM (Electronically Signed)
--- NOTE | 2021-11-15 13:41 | PCM.CONSN ---
- General Info Date of Service: 11/15/21 Admission Dx/Problem (Free Text): High-grade bowel obstruction Subjective Update: Patient was seen on rounds earlier this morning. She did state that her abdominal pain was about a "4". She still had not taken any pain medications. She did have a small bowel movement yesterday after enemas. She is still not passing any gas spontaneously. She has been up and walking around. CT scan was done, a little while ago and does show an obstructing neoplasm in the distal sigmoid or rectosigmoid area. Functional Status: Reports: Pain Controlled, Ambulating - Review of Systems General: Denies: Fever, Weakness, Fatigue, Malaise HEENT: Reports: No Symptoms Pulmonary: Denies: Shortness of Breath, Pleuritic Chest Pain, Cough Cardiovascular: Denies: Chest Pain Gastrointestinal: Reports: Abdominal Pain, Constipation. Denies: Diarrhea, Flatus, Hematochezia, Melena, Nausea, Vomiting Genitourinary: Denies: Dysuria, Frequency, Burning, Pain, Urgency Musculoskeletal: Reports: No Symptoms Skin: Denies: Cyanosis, Jaundice Neurological: Reports: No Symptoms Psychiatric: Reports: No Symptoms - Patient Data Vitals - Most Recent: Last Vital Signs Temp 96.4 F L 11/15/21 11:25 Pulse 88 11/15/21 11:25 Resp 20 11/15/21 11:25 BP 146/65 H 11/15/21 11:25 Pulse Ox 99 11/15/21 11:25 Weight - Most Recent: 264 lb 12.403 oz I&O - Last 24 Hours: Intake & Output 11/15/21 11/15/21 11/15/21 03:59 11:59 19:59 Intake Total 100 Output Total 750 Balance -650 Lab Results Last 24 Hours: Laboratory Results - last 24 hr 11/14/21 11/14/21 11/15/21 Range/Units 15:23 18:30 00:39 WBC (4.0-11.0) K/uL RBC (4.30-5.90) M/uL Hgb (12.0-16.0) g/dL Hct (36.0-46.0) % MCV (80.0-98.0) fL MCH (27.0-32.0) pg MCHC (31.0-37.0) g/dL RDW Std Deviation (28.0-62.0) fl RDW Coeff of Papo (11.0-15.0) % Plt Count (150-400) K/uL MPV (7.40-12.00) fL Nucleated RBC % /100WBC Nucleated RBCs # K/uL Sodium (136-145) mmol/L Potassium (3.5-5.1) mmol/L Chloride (98-107) mmol/L Carbon Dioxide (21.0-32.0) mmol/L BUN (7.0-18.0) mg/dL Creatinine (0.6-1.0) mg/dL Est Cr Clr Drug Dosing mL/min Estimated GFR (MDRD) ml/min Glucose (74-106) mg/dL POC Glucose 97 96 104 H (70-99) mg/dL Calcium (8.5-10.1) mg/dL Total Bilirubin (0.2-1.0) mg/dL AST (15-37) IU/L ALT (14-63) IU/L Alkaline Phosphatase (46-116) U/L Total Protein (6.4-8.2) g/dL Albumin (3.4-5.0) g/dL Globulin (2.6-4.0) g/dL Albumin/Globulin Ratio (0.9-1.6) 11/15/21 11/15/21 11/15/21 Range/Units 05:25 05:25 06:05 WBC 5.92 (4.0-11.0) K/uL RBC 4.15 L (4.30-5.90) M/uL Hgb 12.5 (12.0-16.0) g/dL Hct 38.5 (36.0-46.0) % MCV 92.8 (80.0-98.0) fL MCH 30.1 (27.0-32.0) pg MCHC 32.5 (31.0-37.0) g/dL RDW Std Deviation 46.0 (28.0-62.0) fl RDW Coeff of Papo 14 (11.0-15.0) % Plt Count 440 H (150-400) K/uL MPV 10.50 (7.40-12.00) fL Nucleated RBC % 0.0 /100WBC Nucleated RBCs # 0 K/uL Sodium 146 H (136-145) mmol/L Potassium 3.9 (3.5-5.1) mmol/L Chloride 105 (98-107) mmol/L Carbon Dioxide 31.1 (21.0-32.0) mmol/L BUN 17 (7.0-18.0) mg/dL Creatinine 0.6 (0.6-1.0) mg/dL Est Cr Clr Drug Dosing 93.04 mL/min Estimated GFR (MDRD) > 60.0 ml/min Glucose 105 (74-106) mg/dL POC Glucose 92 (70-99) mg/dL Calcium 9.2 (8.5-10.1) mg/dL Total Bilirubin 0.3 (0.2-1.0) mg/dL AST 14 L (15-37) IU/L ALT 11 L (14-63) IU/L Alkaline Phosphatase 68 (46-116) U/L Total Protein 6.2 L (6.4-8.2) g/dL Albumin 3.2 L (3.4-5.0) g/dL Globulin 3.0 (2.6-4.0) g/dL Albumin/Globulin Ratio 1.1 (0.9-1.6) 11/15/21 Range/Units 13:11 WBC (4.0-11.0) K/uL RBC (4.30-5.90) M/uL Hgb (12.0-16.0) g/dL Hct (36.0-46.0) % MCV (80.0-98.0) fL MCH (27.0-32.0) pg MCHC (31.0-37.0) g/dL RDW Std Deviation (28.0-62.0) fl RDW Coeff of Papo (11.0-15.0) % Plt Count (150-400) K/uL MPV (7.40-12.00) fL Nucleated RBC % /100WBC Nucleated RBCs # K/uL Sodium (136-145) mmol/L Potassium (3.5-5.1) mmol/L Chloride (98-107) mmol/L Carbon Dioxide (21.0-32.0) mmol/L BUN (7.0-18.0) mg/dL Creatinine (0.6-1.0) mg/dL Est Cr Clr Drug Dosing mL/min Estimated GFR (MDRD) ml/min Glucose (74-106) mg/dL POC Glucose 79 (70-99) mg/dL Calcium (8.5-10.1) mg/dL Total Bilirubin (0.2-1.0) mg/dL AST (15-37) IU/L ALT (14-63) IU/L Alkaline Phosphatase (46-116) U/L Total Protein (6.4-8.2) g/dL Albumin (3.4-5.0) g/dL Globulin (2.6-4.0) g/dL Albumin/Globulin Ratio (0.9-1.6) [place] Results Last 24 Hours: Microbiology 11/13/21 03:05 Urine Culture - Final Urine Med Orders - Current: Current Medications Albuterol/Ipratropium (Albuterol/Ipratropium 3.0-0.5 Mg/3 Ml Neb Soln) 3 ml NEB Q4HRRT PRN PRN Reason: Shortness Of Breath/wheezing Enoxaparin Sodium (Enoxaparin 40 Mg/0.4 Ml Syringe) 40 mg SUBCUT Q24H [facility] Last Admin: 11/15/21 08:06 Dose: 40 mg Documented by: Ceftriaxone Sodium/Dextrose 2 (gm/ Premix) 50 mls @ 100 mls/hr IV Q24H [facility] Last Admin: 11/15/21 07:47 Dose: 100 mls/hr Documented by: Ondansetron HCl (Ondansetron 4 Mg/2 Ml Sdv) 4 mg IVPUSH Q6H PRN PRN Reason: Nausea/Vomiting Sodium Chloride (Sodium Chloride 0.9% 10 Ml Syringe) 10 ml FLUSH ASDIRECTED PRN PRN Reason: Keep Vein Open Sodium Chloride (Sodium Chloride 0.9% 2.5 Ml Syringe) 2.5 ml FLUSH ASDIRECTED PRN PRN Reason: Keep Vein Open Discontinued Medications Sodium Chloride (Normal Saline) 1,000 mls @ 999 mls/hr IV .Bolus ONE Stop: 11/13/21 02:40 Last Admin: 11/13/21 02:10 Dose: 999 mls/hr Documented by: Potassium Chloride/Dextrose/Sod Cl (D5 1/2 Ns W/ 20 Meq/L Kcl) 1,000 mls @ 100 mls/hr IV ASDIRECTED [facility] Last Admin: 11/13/21 03:35 Dose: 100 mls/hr Documented by: Ceftriaxone Sodium/Dextrose 1 (gm/ Premix) 50 mls @ 100 mls/hr IV ONETIME ONE Stop: 11/13/21 03:51 Last Admin: 11/13/21 03:35 Dose: 100 mls/hr Documented by: Sodium Chloride (Normal Saline) 1,000 mls @ 75 mls/hr IV ONETIME [facility]NY Stop: 11/14/21 06:04 Last Admin: 11/13/21 19:01 Dose: 75 mls/hr Documented by: Dextrose/Sodium Chloride (Dextrose 5%-Normal Saline) 1,000 mls @ 75 mls/hr IV ASDIRECTED ANNY Stop: 11/15/21 00:34 Last Admin: 11/14/21 12:18 Dose: 75 mls/hr Documented by: Lidocaine HCl (Lidocaine 2% Viscous Solution 15 Ml Cup) 15 ml PO ONETIME ONE Stop: 11/13/21 03:13 Last Admin: 11/13/21 03:36 Dose: 15 ml Documented by: Ondansetron HCl (Ondansetron 4 Mg/2 Ml Sdv) 4 mg IVPUSH ONETIME ONE Stop: 11/13/21 01:41 Last Admin: 11/13/21 02:10 Dose: 4 mg Documented by: - Exam General: Alert, Oriented, Cooperative, Mild Distress HEENT: Pupils Equal, Pupils Reactive. No: Scleral Icterus Neck: Supple, Trachea Midline Lungs: Clear to Auscultation, Normal Respiratory Effort Cardiovascular: Regular Rate, Regular Rhythm, No Murmurs. No: Bradycardia, Tachycardia GI/Abdominal Exam: Soft, Distended, Abnormal Bowel Sounds. No: Guarding, Rigid, Rebound, Tender, Hernia, Mass, Hepatomegaly, Splenomegaly (Female) Exam: Deferred Back Exam: Normal Inspection Extremities: Normal Inspection, Normal Range of Motion Peripheral Pulses: 4+: Posterior Tibial (L), Posterior Tibial (R), Dorsalis Pedis (L), Dorsalis Pedis (R) Skin: Warm, Dry, Intact Wound/Incisions: Healing Well Neurological: No New Focal Deficit Psy/Mental Status: Alert, Normal Affect, Normal Mood Sepsis Event Note - Evaluation Sepsis Screening Result: No Definite Risk - Focused Exam Vital Signs: Vital Signs Temp Pulse Resp BP Pulse Ox 12/23/21 11:25 96.4 F L 88 20 146/65 H 99 11/15/21 08:17 96.8 F L 86 22 H 131/66 97 11/15/21 04:00 97.0 F 80 17 111/66 97 Consult PN Assessment/Plan (1) Large bowel obstruction SNOMED Code(s): 303310126 Code(s): K56.609 - UNSP INTESTNL OBST, UNSP TO PARTIAL VERSUS COMPLETE OBST Priority: High Current Visit: Yes (2) SBO (small bowel obstruction) SNOMED Code(s): 793835138 Code(s): K56.609 - UNSP INTESTNL OBST, UNSP TO PARTIAL VERSUS COMPLETE OBST Priority: High Current Visit: Yes Problem List Initiated/Reviewed/Updated: Yes Plan: CT scan images and report have personally been reviewed. 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 Given the acute nature of the event, I think it best for her to be seen by either Dr. Tang or Dr. Abernathy who are both colorectal surgeons at [facility] in [place]. Patient is hemodynamically stable and would benefit from transfer to a higher level of care at a larger institution with laparoscopic capabilities, the possibility of colonic stenting as well as stomal nurses.
[2021-11-15] MEDS ORDERED: Dextrose 5%-0.9% NaCl 1,000 ML IV SCH (14:45)
--- NOTE | 2021-11-15 15:10 | PCM.DCSUM1 ---
Discharge Summary - Hospital Course Free Text/Narrative:: 66 y/o F admitted with a bowel obstruction. Imaging studies revealed a large and small bowel obstruction. She was initially placed on NG to suction for relief of her abd discomfort and to see if that would relieve her symptoms. This did not help much. She then had a CT abd/pelvis with contrast which showed a soft tissue mass within the sigmoid colon. Dr. Givens was notified and he recommended that the patient go to [facility] in [place] where she can be seen by the colorectal surgeons Dr. Parra or Dr. Nolasco. Pt was therefore discharged home with arrangements to see the colorectal surgical team in [place]. Pt opted to go home and take care of some of her bills and errands. She promised that she will have a friend of family member to drive her there. Activity: as tolerated Diet: npo Follow up with colorectal surgery in [place] as soon as possible. Discharge time is 35 mins . physical exam General: thin elderly female. In no distress CVS: S1S2 appreciated. RRR lungs: clear bilaterally pa: soft, some tenderness in the lower quadrants, bowel sounds are present. ext: no clubbing, cyanosis or edema neuro: no focal deficits. Diagnosis: Stroke: No - Discharge Data Discharge Date: 11/15/21 Discharge Disposition: Home, Self-Care 01 Condition: Stable - Referral to Home Health Primary Care Physician: PCP None - Patient Summary/Data Consults: Consultations 11/13/21 10:59 Consult to Physician [CONS] Routine - Discharge Plan *PRESCRIPTION DRUG MONITORING PROGRAM REVIEWED*: No *COPY OF PRESCRIPTION DRUG MONITORING REPORT IN PATIENT MORRO: No Home Medications: Home Meds . [No Known Home Meds] 11/13/21 [History] Patient Handouts: Bowel Obstruction, [id number], Urinary Tract Infection, Adult, [id number] Referrals: PCP,None [Primary Care Provider] - - Discharge Summary/Plan Comment DC Time >30 min.: Yes Total # of Minutes for Discharge Time: 35 mins - Patient Data Vitals - Most Recent: Last Vital Signs Temp 96.4 F L 11/15/21 11:25 Pulse 88 11/15/21 11:25 Resp 20 11/15/21 11:25 BP 146/65 H 11/15/21 11:25 Pulse Ox 99 11/15/21 11:25 Weight - Most Recent: 264 lb 12.403 oz I&O - Last 24 hours: Intake & Output 11/15/21 11/15/21 11/15/21 06:59 14:59 22:59 Intake Total 100 Output Total 750 Balance -650 Lab Results - Last 24 hrs: Laboratory Results - last 24 hr 11/14/21 11/14/21 11/15/21 Range/Units 15:23 18:30 00:39 WBC (4.0-11.0) K/uL RBC (4.30-5.90) M/uL Hgb (12.0-16.0) g/dL Hct (36.0-46.0) % MCV (80.0-98.0) fL MCH (27.0-32.0) pg MCHC (31.0-37.0) g/dL RDW Std Deviation (28.0-62.0) fl RDW Coeff of Papo (11.0-15.0) % Plt Count (150-400) K/uL MPV (7.40-12.00) fL Nucleated RBC % /100WBC Nucleated RBCs # K/uL Sodium (136-145) mmol/L Potassium (3.5-5.1) mmol/L Chloride (98-107) mmol/L Carbon Dioxide (21.0-32.0) mmol/L BUN (7.0-18.0) mg/dL Creatinine (0.6-1.0) mg/dL Est Cr Clr Drug Dosing mL/min Estimated GFR (MDRD) ml/min Glucose (74-106) mg/dL POC Glucose 97 96 104 H (70-99) mg/dL Calcium (8.5-10.1) mg/dL Total Bilirubin (0.2-1.0) mg/dL AST (15-37) IU/L ALT (14-63) IU/L Alkaline Phosphatase (46-116) U/L Total Protein (6.4-8.2) g/dL Albumin (3.4-5.0) g/dL Globulin (2.6-4.0) g/dL Albumin/Globulin Ratio (0.9-1.6) 11/15/21 11/15/21 11/15/21 Range/Units 05:25 05:25 06:05 WBC 5.92 (4.0-11.0) K/uL RBC 4.15 L (4.30-5.90) M/uL Hgb 12.5 (12.0-16.0) g/dL Hct 38.5 (36.0-46.0) % MCV 92.8 (80.0-98.0) fL MCH 30.1 (27.0-32.0) pg MCHC 32.5 (31.0-37.0) g/dL RDW Std Deviation 46.0 (28.0-62.0) fl RDW Coeff of Papo 14 (11.0-15.0) % Plt Count 440 H (150-400) K/uL MPV 10.50 (7.40-12.00) fL Nucleated RBC % 0.0 /100WBC Nucleated RBCs # 0 K/uL Sodium 146 H (136-145) mmol/L Potassium 3.9 (3.5-5.1) mmol/L Chloride 105 (98-107) mmol/L Carbon Dioxide 31.1 (21.0-32.0) mmol/L BUN 17 (7.0-18.0) mg/dL Creatinine 0.6 (0.6-1.0) mg/dL Est Cr Clr Drug Dosing 93.04 mL/min Estimated GFR (MDRD) > 60.0 ml/min Glucose 105 (74-106) mg/dL POC Glucose 92 (70-99) mg/dL Calcium 9.2 (8.5-10.1) mg/dL Total Bilirubin 0.3 (0.2-1.0) mg/dL AST 14 L (15-37) IU/L ALT 11 L (14-63) IU/L Alkaline Phosphatase 68 (46-116) U/L Total Protein 6.2 L (6.4-8.2) g/dL Albumin 3.2 L (3.4-5.0) g/dL Globulin 3.0 (2.6-4.0) g/dL Albumin/Globulin Ratio 1.1 (0.9-1.6) 11/15/21 Range/Units 13:11 WBC (4.0-11.0) K/uL RBC (4.30-5.90) M/uL Hgb (12.0-16.0) g/dL Hct (36.0-46.0) % MCV (80.0-98.0) fL MCH (27.0-32.0) pg MCHC (31.0-37.0) g/dL RDW Std Deviation (28.0-62.0) fl RDW Coeff of Papo (11.0-15.0) % Plt Count (150-400) K/uL MPV (7.40-12.00) fL Nucleated RBC % /100WBC Nucleated RBCs # K/uL Sodium (136-145) mmol/L Potassium (3.5-5.1) mmol/L Chloride (98-107) mmol/L Carbon Dioxide (21.0-32.0) mmol/L BUN (7.0-18.0) mg/dL Creatinine (0.6-1.0) mg/dL Est Cr Clr Drug Dosing mL/min Estimated GFR (MDRD) ml/min Glucose (74-106) mg/dL POC Glucose 79 (70-99) mg/dL Calcium (8.5-10.1) mg/dL Total Bilirubin (0.2-1.0) mg/dL AST (15-37) IU/L ALT (14-63) IU/L Alkaline Phosphatase (46-116) U/L Total Protein (6.4-8.2) g/dL Albumin (3.4-5.0) g/dL Globulin (2.6-4.0) g/dL Albumin/Globulin Ratio (0.9-1.6) [place] Results - Last 24 hrs: Microbiology 11/13/21 03:05 Urine Culture - Final Urine Med Orders - Current: Current Medications Albuterol/Ipratropium (Albuterol/Ipratropium 3.0-0.5 Mg/3 Ml Neb Soln) 3 ml NEB Q4HRRT PRN PRN Reason: Shortness Of Breath/wheezing Enoxaparin Sodium (Enoxaparin 40 Mg/0.4 Ml Syringe) 40 mg SUBCUT Q24H [facility] Last Admin: 11/15/21 08:06 Dose: 40 mg Documented by: Ceftriaxone Sodium/Dextrose 2 (gm/ Premix) 50 mls @ 100 mls/hr IV Q24H [facility] Last Admin: 11/15/21 07:47 Dose: 100 mls/hr Documented by: Dextrose/Sodium Chloride (Dextrose 5%-Normal Saline) 1,000 mls @ 999 mls/hr IV ASDIRECTED [facility] Stop: 11/15/21 15:46 Ondansetron HCl (Ondansetron 4 Mg/2 Ml Sdv) 4 mg IVPUSH Q6H PRN PRN Reason: Nausea/Vomiting Sodium Chloride (Sodium Chloride 0.9% 10 Ml Syringe) 10 ml FLUSH ASDIRECTED PRN PRN Reason: Keep Vein Open Sodium Chloride (Sodium Chloride 0.9% 2.5 Ml Syringe) 2.5 ml FLUSH ASDIRECTED PRN PRN Reason: Keep Vein Open Discontinued Medications Sodium Chloride (Normal Saline) 1,000 mls @ 999 mls/hr IV .Bolus ONE Stop: 11/13/21 02:40 Last Admin: 11/13/21 02:10 Dose: 999 mls/hr Documented by: Potassium Chloride/Dextrose/Sod Cl (D5 1/2 Ns W/ 20 Meq/L Kcl) 1,000 mls @ 100 mls/hr IV ASDIRECTED [facility] Last Admin: 11/13/21 03:35 Dose: 100 mls/hr Documented by: Ceftriaxone Sodium/Dextrose 1 (gm/ Premix) 50 mls @ 100 mls/hr IV ONETIME ONE Stop: 11/13/21 03:51 Last Admin: 11/13/21 03:35 Dose: 100 mls/hr Documented by: Sodium Chloride (Normal Saline) 1,000 mls @ 75 mls/hr IV ONETIME [facility] Stop: 11/14/21 06:04 Last Admin: 11/13/21 19:01 Dose: 75 mls/hr Documented by: Dextrose/Sodium Chloride (Dextrose 5%-Normal Saline) 1,000 mls @ 75 mls/hr IV ASDIRECTED [facility] Stop: 11/15/21 00:34 Last Admin: 11/14/21 12:18 Dose: 75 mls/hr Documented by: Lidocaine HCl (Lidocaine 2% Viscous Solution 15 Ml Cup) 15 ml PO ONETIME ONE Stop: 11/13/21 03:13 Last Admin: 11/13/21 03:36 Dose: 15 ml Documented by: Ondansetron HCl (Ondansetron 4 Mg/2 Ml Sdv) 4 mg IVPUSH ONETIME ONE Stop: 11/13/21 01:41 Last Admin: 11/13/21 02:10 Dose: 4 mg Documented by:
[2021-11-15] MEDS ORDERED: Iopamidol 755 MG/ML 500 ML Multipack Bottle IVPUSH STA (18:52)
== END 2021-11-15 15:50 | disposition home or self-care (01) | DRG 389 ==
LOC: MW.ED 01:40 → MW.MS 02:57
PROVIDERS: ADMIT Hospitalist; ATTEND Hospitalist
DX: K56.609 Unspecified intestinal obstruction, unspecified as to partial versus complete obstruction (principal); N39.0 Urinary tract infection, site not specified; Z87.19 Personal history of other diseases of the digestive system; K59.00 Constipation, unspecified; Z90.49 Acquired absence of other specified parts of digestive tract; Z20.822 Contact with and (suspected) exposure to COVID-19
CPT/HCPCS: 74022; 80053; 83690; 85025; 96374; 99285; J2405; J7030; 36415; 74018; 74018-26; 74177; 74177-26; 81001; 82947; 85027; 87086; A9270-GY; J0696; J1650; J3480; J7042; Q9967; U0002

== ENCOUNTER 2021-11-15 19:13 | Emergency (ER) | payer MEDICARE, BC ==
[2021-11-15] MEDS ORDERED: Lactated Ringers 1,000 ML IV STA (19:45)
--- NOTE | 2021-11-15 19:47 | EDM.PDOC ---
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 Patient states that she presents to the emergency department because of dehydration. She states that she not able to tolerate p.o. secondary to the obstruction. She was told not to take anything by mouth. She states that she was admitted here in the hospital and they recommended transfer to [place] so she comes here today also for transfer to [place] for evaluation by colorectal surgery. She currently denies any pain, fever, chills chest pain, shortness of breath, nausea or vomiting. She denies any other symptoms. She states that she still has not had any bowel movement and has not had any vomiting secondary to no p.o. intake. She states her nausea is well controlled. REVIEW OF SYSTEMS: Constitutional: Positive for dehydration. Denies fever, chills. Eyes: Denies eye pain Ears, Nose, Mouth, & Throat: Denies earache Cardiovascular: Denies chest pain Respiratory: Denies shortness of breath Gastrointestinal: Denies Nausea, vomiting, diarrhea, hematochezia. Genitourinary: Denies hematuria Skin:Denies a rash MSK: Denies joint pain Neurological: Denies blurred vision Psychiatric: Denies depression PAST MEDICAL HISTORY: As per history of present illness and as reviewed below otherwise noncontributory. SURGICAL HISTORY: As per history of present illness and as reviewed below otherwise noncontributory. SOCIAL HISTORY: As per history of present illness and as reviewed below otherwise noncontributory. FAMILY HISTORY: As per history of present illness and as reviewed below otherwise noncontributory. EXAMINATION OF ORGAN SYSTEMS/BODY AREAS: Constitutional: Blood pressure is 141/85, heart rate 90, respiratory rate 18 with an oxygen saturation 97% on room air. Temperature 36.6 General: Well-appearing woman who is in no acute distress Psychiatric: Appropriate mood and affect. Eyes: No scleral icterus or conjunctival erythema ENMT: Moist mucous membranes. No pharyngeal erythema Cardiovascular: Regular, rate, and rhythm. No gallops, murmurs, or rubs. Bilateral upper extremity pulses symmetric and intact. No peripheral edema. No JVD. Respiratory: Lungs clear to auscultation bilaterally. No wheezes, rales, or rhonchi. Gastrointestinal: Soft, non-tender, non-distended. Normoactive bowel sounds no rebound or guarding. Genitourinary: No suprapubic tenderness Musculoskeletal: Normal range of motion. Skin: No lesions or abrasions. Neurological: Alert, GCS 15 MEDICAL DECISION MAKING AND COURSE IN THE ED WITH INTERPRETATION/REVIEW OF DIAGNOSTIC STUDIES: This is a 66-year-old woman with a recent diagnosis of large bowel obstruction secondary to obstructing high-grade sigmoid/rectosigmoid neoplasm who comes to the emergency department with dehydration and request for transfer. The patient's vital signs are completely normal. Given the high- grade obstruction I did review the patient's chart. The patient was evaluated by Dr. Givens today who recommended transfer to [facility] to be admitted and evaluated by colorectal surgeons Dr. Abernathy/Dipesh. This was also communicated to me by patient commercial loan assistant Dr. Esteves directly. Given the high- grade obstruction the patient definitely needs evaluation by tertiary care center and a surgeon who is capable of handling high-grade neoplasm and obstruction. At this time we will obtain repeat labs and a Covid swab. We will make the patient n.p.o. and start the patient on maintenance fluids. At this time I do not believe any repeat imaging is indicated. Laboratory: CBC is unremarkable except for thrombocytosis at 450. CMP reveals hypokalemia at 2.7. Covid is negative. After labs I did provide the patient with 40 mEq of IV potassium given that the patient is n.p.o. I contacted [facility] in [place] and in discussion by [address] Martinez today they do not have any colorectal capability to admit this patient. They recommended contacted [facility] in [place] for transfer. Therefore I contacted [facility] and they have no available beds at this time therefore patient cannot be transferred to [facility] in [place]. we will contact [facility]. I then spoke with Dr. Pool who stated that they do have capability for this patient. She recommended ED to ED transfer. I did discuss this with the patient that she was amenable to this plan. I did review the patient's imaging today for which she had a CT abdomen pelvis. CT abdomen pelvis revealed a 3 cm soft tissue mass in the sigmoid colon this is obstructing and causing marked distention of the colon proximal to the mass. No other signs of metastatic disease. At 9:24PM [facility] called and stated that there are no available beds and can put patient on wait list. Given the patient is unable to be discharged home and we do not have surgical capability here in the emergency department and general surgery capabilities to handle this patient I did contact [facility] in [place] and they currently do not have any availability. I then spoke to [facility] in [place] and they also do not have any bed availability. In addition I contacted [facility] and they have no bed availability and I spoke with Dr. Smith who will review the images and the patient will be placed on the wait list. We then contacted [facility] and they do have bed availability therefore I spoke with Dr. Martinez and at this time given this a large bowel obstruction essentially a closed-loop obstruction that the patient does need to have urgent/emergent surgical intervention and does accept transfer. Dr. Muñoz ER physician also accepted transfer. This was discussed with the patient. The patient was amenable to transfer at this time DISPOSITION: The patient was transferred to [facility] in [place] in stable yet serious condition CONDITION: Serious PROCEDURES: None FINAL IMPRESSION(S)/DIAGNOSES: 1. Acute large bowel obstruction secondary to obstructing mass 2. Acute hypokalemia Lico Coyle M.D. Critical Care Procedure Note Authorized and performed by: Lico Coyle M.D. Critical Care Time: 75 minutes Due to a high probability of clinically significant, life threatening deterioration, the patient required my highest level of preparedness to intervene emergently and I personally spent this critical care time directly and personally managing the patient. This critical care time included obtaining a history, examining the patient, pulse oximetry; ordering and review of studies; arranging urgent treatment with development of a management plan; evaluation of a patients reponse to treatment; frequent assessment; and discussions with other providers. This critical care time was performed to assess and manage the high probability of imminent, life threatening deterioration that could result in multiorgan failure. It was exclusive of separate billable procedures and treating other patients. Please see MDM section and rest of the note for further information on patient assessment and treatment. Please see MDM section and rest of the note for further information on patient assessment and treatment. - Related Data Allergies Allergy/AdvReac Type Severity Reaction Status Date / Time No Known Allergies Allergy Verified 11/15/21 19:20 Home Meds: Home Meds . [No Known Home Meds] 11/13/21 [History] Past Medical History HEENT History: Reports: None Cardiovascular History: Reports: None Respiratory History: Reports: None Gastrointestinal History: Reports: Bowel Obstruction Other Gastrointestinal History: as teen Genitourinary History: Reports: None SANITATION LABORER History: Reports: None Musculoskeletal History: Reports: None Neurological History: Reports: None Psychiatric History: Reports: None Endocrine/Metabolic History: Reports: None Insulin Pump Model and Seed Yeast Operator: N/A Hematologic History: Reports: None Immunologic History: Reports: None Oncologic (Cancer) History: Reports: None Dermatologic History: Reports: None - Infectious Disease History Infectious Disease History: Reports: None - Past Surgical History Head Surgeries/Procedures: Reports: None HEENT Surgical History: Reports: Visual, Other (See Below) Other HEENT Surgeries/Procedures: 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 GI Surgical History: Reports: Appendectomy Other GI Surgeries/Procedures: Laparotomy for small bowel obstruction as a teen Social & Family History - Family History Family Medical History: No Pertinent Family History - Caffeine Use Caffeine Use: Reports: None - Recreational Drug Use Recreational Drug Use: No ED ROS GENERAL - Review of Systems Review Of Systems: See Below ED EXAM, GENERAL - Physical Exam Exam: See Below Course - Vital Signs Last Recorded V/S: Last Vital Signs Temp 36.6 C 11/15/21 19:15 Pulse 90 11/15/21 19:15 Resp 18 11/15/21 19:15 BP 141/85 H 11/15/21 19:15 Pulse Ox 97 11/15/21 19:15 - Orders/Labs/Meds Orders: Active Orders 24 hr Category Date Time Status NPO [Nothing Per Oral Diet] [DIET] Diet 11/16/21 Breakfast Active Lactated Ringers [Ringers, Lactated] 1,000 ml Med 11/15/21 19:45 Active IV STAT Potassium Chloride Riders [KCL in Water 40 MEQ/100 ML] Med 11/15/21 20:22 Active 40 meq Premix Bag 1 bag IV ONETIME Medication Orders Lactated Ringer's (Ringers, Lactated) 1,000 mls @ 150 mls/hr IV STAT STA Stop: 11/16/21 02:24 Last Admin: 11/15/21 20:13 Dose: 150 mls/hr Documented by: KARAN Potassium Chloride 40 meq/ (Premix) 100 mls @ 25 mls/hr IV ONETIME ONE Stop: 11/16/21 00:21 Last Admin: 11/15/21 20:52 Dose: 25 mls/hr Documented by: JORGE LUIS Labs: Laboratory Tests 11/15/21 11/15/21 11/15/21 Range/Units 19:30 19:30 19:40 WBC 6.32 (4.0-11.0) K/uL RBC 4.03 L (4.30-5.90) M/uL Hgb 12.2 (12.0-16.0) g/dL Hct 37.3 (36.0-46.0) % MCV 92.6 (80.0-98.0) fL MCH 30.3 (27.0-32.0) pg MCHC 32.7 (31.0-37.0) g/dL RDW Std Deviation 45.5 (28.0-62.0) fl RDW Coeff of Papo 14 (11.0-15.0) % Plt Count 450 H (150-400) K/uL MPV 10.10 (7.40-12.00) fL Neut % (Auto) 59.1 (48.0-80.0) % Lymph % (Auto) 22.8 (16.0-40.0) % Castro % (Auto) 17.7 H (0.0-15.0) % Eos % (Auto) 0.2 (0.0-7.0) % Baso % (Auto) 0.2 (0.0-1.5) % Neut # (Auto) 3.7 (1.4-5.7) K/uL Lymph # (Auto) 1.4 (0.6-2.4) K/uL Castro # (Auto) 1.1 H (0.0-0.8) K/uL Eos # (Auto) 0.0 (0.0-0.7) K/uL Baso # (Auto) 0.0 (0.0-0.1) K/uL Nucleated RBC % 0.0 /100WBC Nucleated RBCs # 0 K/uL Sodium 145 (136-145) mmol/L Potassium 2.7 L (3.5-5.1) mmol/L Chloride 104 (98-107) mmol/L Carbon Dioxide 26.8 (21.0-32.0) mmol/L BUN 16 (7.0-18.0) mg/dL Creatinine 0.8 (0.6-1.0) mg/dL Est Cr Clr Drug Dosing TNP Estimated GFR (MDRD) > 60.0 ml/min Glucose 105 (74-106) mg/dL Calcium 9.1 (8.5-10.1) mg/dL Total Bilirubin 0.3 (0.2-1.0) mg/dL AST 17 (15-37) IU/L ALT 16 (14-63) IU/L Alkaline Phosphatase 72 (46-116) U/L Total Protein 6.7 (6.4-8.2) g/dL Albumin 3.4 (3.4-5.0) g/dL Globulin 3.3 (2.6-4.0) g/dL Albumin/Globulin Ratio 1.0 (0.9-1.6) SARS-CoV-2 RNA (ANTONIO) NEGATIVE (NEGATIVE) Meds: Medications Generic Name Dose Route Start Last Admin Trade Name Freq PRN Reason Stop Dose Admin Lactated Ringer's 1,000 mls @ 150 mls/hr 11/15/21 19:45 11/15/21 20:13 Ringers, Lactated IV 11/16/21 02:24 150 mls/hr STAT STA Administration Potassium Chloride 40 meq/ 100 mls @ 25 mls/hr 11/15/21 20:22 11/15/21 20:52 Premix IV 11/16/21 00:21 25 mls/hr ONETIME ONE Administration Departure - Departure Time of Disposition: 22:34 Disposition: DC/Tfer to Acute Hospital 02 Condition: Serious Clinical Impression: Large bowel obstruction, Intestinal mass - Discharge Information Referrals: PCP,None [Primary Care Provider] - Forms: ED Department Discharge Sepsis Event Note (ED) - Evaluation Sepsis Screening Result: No Definite Risk - Focused Exam Vital Signs: Vital Signs Temp Pulse Resp BP Pulse Ox 11/15/21 19:15 36.6 C 90 18 141/85 H 97 - My Orders Last 24 Hours: My Active Orders 11/15/21 19:45 Lactated Ringers [Ringers, Lactated] 1,000 ml IV STAT 11/15/21 20:22 Potassium Chloride Riders [KCL in Water 40 MEQ/100 ML] 40 meq Premix Bag 1 bag IV ONETIME 11/16/21 Breakfast NPO [Nothing Per Oral Diet] [DIET] - Assessment/Plan Last 24 Hours: My Active Orders 11/15/21 19:45 Lactated Ringers [Ringers, Lactated] 1,000 ml IV STAT 11/15/21 20:22 Potassium Chloride Riders [KCL in Water 40 MEQ/100 ML] 40 meq Premix Bag 1 bag IV ONETIME 11/16/21 Breakfast NPO [Nothing Per Oral Diet] [DIET]
[2021-11-15 20:17] LABS: BLOOD UREA NITROGEN,BUN 16 mg/dL (7.0-18.0); CARBON DIOXIDE,CO2 26.8 mmol/L (21.0-32.0); CHLORIDE,CL 104 mmol/L (98-107); GLUCOSE RANDOM 105 mg/dL (74-106); POTASSIUM,K 2.7 mmol/L (3.5-5.1); SODIUM,NA 145 mmol/L (136-145)
[2021-11-15] MEDS ORDERED: Potassium Chloride Riders 40 MEQ in Premix Bag 1 BAG IV ONE (20:22)
== END 2021-11-15 23:20 ==
LOC: MW.ED 19:13
DX: K56.609 Unspecified intestinal obstruction, unspecified as to partial versus complete obstruction (principal); E87.6 Hypokalemia; Z20.822 Contact with and (suspected) exposure to COVID-19
CPT/HCPCS: 36415; 80053; 85025; 96365; 96366; 99291; J3480; J7120; U0002

== ENCOUNTER 2023-03-24 09:34 | Day surgery (SDC) | payer MEDICARE, BC ==
[~2023-03-24 09:34] MED LIST changes: +Lactated Ringers 1,000 ML IV SCH; -Ondansetron 4 MG/2 ML SDV IVPUSH ONE; -Sodium Chloride 0.9% 1,000 ML IV ONE; -Sodium Chloride 0.9% 10 ML Syringe FLUSH PRN; -Sodium Chloride 0.9% 2.5 ML Syringe FLUSH PRN
[2023-03-24] MEDS ORDERED: Propofol 200 MG/20 ML SDV ONE (10:46)
[2023-03-24] MEDS ORDERED: Lactated Ringers 1,000 ML IV SCH (11:30)
== END 2023-03-24 12:05 | disposition home or self-care (01) ==
LOC: MW.SDS 09:34
PROVIDERS: ATTEND Surgery
DX: Z12.11 Encounter for screening for malignant neoplasm of colon (principal); K57.30 Diverticulosis of large intestine without perforation or abscess without bleeding; K56.699 Other intestinal obstruction unspecified as to partial versus complete obstruction; K56.609 Unspecified intestinal obstruction, unspecified as to partial versus complete obstruction; M81.0 Age-related osteoporosis without current pathological fracture; Z87.891 Personal history of nicotine dependence; Z93.3 Colostomy status; Z90.49 Acquired absence of other specified parts of digestive tract; Z87.19 Personal history of other diseases of the digestive system; Z79.899 Other long term (current) drug therapy; Z98.0 Intestinal bypass and anastomosis status
CPT/HCPCS: G0121; J2704; J7120; 00812